=== PATIENT | female | born 1950 | race Caucasian/White ===

== ENCOUNTER 2017-03-02 13:06 | Emergency (ER) | payer MEDICARE, OTHER ==
[2017-03-02 15:41] VITALS: BP 158/95
== END 2017-03-02 16:40 | disposition left against medical advice (07) ==
LOC: JP.ED 13:06
DX: Z53.21 Procedure and treatment not carried out due to patient leaving prior to being seen by health care provider (principal)

== ENCOUNTER 2017-04-05 07:16 | Day surgery (SDC) | payer MEDICARE, OTHER ==
[~2017-04-05 07:16] MED LIST: Lidocaine 1% with EPINEPHrine 1:100,000 50 ML MDV ONE; Sodium Chloride 0.9% 10 ML ONE; Sodium Tetradecyl Sulfate 1% 20 MG/2 ML SDV ONE
[2017-04-05] MEDS ORDERED: Sodium Chloride 0.9% 1,000 ML IV SCH (08:00)
[2017-04-05] MEDS ORDERED: Lidocaine 1% w/EPINEPHrine 50 ML, Sodium Bicarbonate 5 MEQ in Sodium Chloride 0.9% 950 ML INJECT ONE (08:45)
[2017-04-05] MEDS ORDERED: Propofol 200 MG/20 ML SDV ONE ×2 (09:07→09:17)
[2017-04-05] MEDS ORDERED: fentaNYL 100 MCG/2 ML SDV ONE (09:07)
[2017-04-05] MEDS ORDERED: Midazolam 1 MG/ML 2 ML SDV ONE (09:07)
[2017-04-05] MEDS ORDERED: fentaNYL 250 MCG/5 ML SDV ONE (09:14)
[2017-04-05] MEDS ORDERED: Acetaminophen/HYDROcodone 325-5 MG Tab PO PRN (10:17)
[2017-04-05 12:27] VITALS: BP 143/78
--- NOTE | 2017-04-06 07:32 | OR ---
DATE OF PROCEDURE: 04/05/2017 PREOPERATIVE DIAGNOSES: 1. Radiofrequency ablation of right greater saphenous vein. 2. Sclerotherapy, right leg, multiple. 3. CoFlex wrapping, right leg. COMPLICATIONS: None. ABRASIVE GRINDER: None. ANESTHESIA: MAC. POSTOPERATIVE DIAGNOSIS: Venous/varicose vein insufficiency with inflammation and pain. Risks: Risks benefits, alternatives, and limitations were including, but not limited to infection, bleeding, and DVT formation were explained and the patient wished to proceed. PROCEDURE IN DETAIL: The patient was placed in supine position. The GSV was identified on the right leg. This was followed down to the level of the ankle, but then extreme tortuosity was noted in the lower calf. Therefore, access point would be around the knee. This was accessed using a 31,000 or a 21-gauge needle that was exchanged for a 35,000 wire then exchanged for a 7-Polish sheath. The RFA probe was advanced 3 cm to the saphenofemoral junction. Tumescent fluid was injected 1 cm jacket around this would be verified at the second time. The RFA probe was then deployed x2 proximally and distally and x1 in all other segments. Direct even pressure was held. The sheath and device were then removed. Dermabond was applied. Sclerotherapy was then performed on the right leg. There were 3 on the right. This was performed using 0.33% sodium tetradactyl, was drawn back to ensure intravascular injection only. No more than 2 mL was injected in one location. CoFlex wrapping was then applied to the right leg. The patient tolerated the procedure well. Tigre Oneal MD /[id number]
== END 2017-04-05 11:30 | disposition home or self-care (01) ==
LOC: JP.SDS 07:16
PROVIDERS: ATTEND Surgery
DX: I87.2 Venous insufficiency (chronic) (peripheral) (principal); I83.11 Varicose veins of right lower extremity with inflammation; I83.811 Varicose veins of right lower extremity with pain; I25.2 Old myocardial infarction; G47.33 Obstructive sleep apnea (adult) (pediatric); I10 Essential (primary) hypertension; E78.5 Hyperlipidemia, unspecified; E11.9 Type 2 diabetes mellitus without complications; K21.9 Gastro-esophageal reflux disease without esophagitis; Z88.0 Allergy status to penicillin; Z88.8 Allergy status to other drugs, medicaments and biological substances; Z91.040 Latex allergy status
CPT/HCPCS: 36471; 36475; A9270; J1642; J2250; J2704; J3010; J7040; J7050; J3490

== ENCOUNTER 2018-02-19 12:25 | Observation (INO) | payer MEDICARE, OTHER ==
[2018-02-19] MEDS ORDERED: Sodium Chloride 0.9% 10 ML Syringe FLUSH PRN (13:13)
[2018-02-19] MEDS ORDERED: Ondansetron 4 MG/2 ML SDV IV PRN (13:13)
[2018-02-19] MEDS ORDERED: Polyethylene Glycol 3350 Powder 17 GM Packet PO PRN (13:13)
[2018-02-19] MEDS ORDERED: Magnesium Hydroxide 400 MG/5 ML Susp 30 ML Cup PO PRN (13:13)
[2018-02-19] MEDS ORDERED: 50% Dextrose in Water 50 ML Syringe IV PRN (13:13)
[2018-02-19] MEDS ORDERED: Glucose Gel 15 GM in 37.5 GM Tube PO PRN (13:13)
[2018-02-19] MEDS ORDERED: Aztreonam 1 GM in Sodium Chloride 0.9% 100 ML IV SCH (14:00)
--- NOTE | 2018-02-19 14:08 | PCM.HP ---
H&P History of Present Illness - General Date of Service: 02/19/18 Admit Problem/Dx: Admission Diagnosis/Problem Admission Diagnosis/Problem Urinary tract infection Source of Information: Patient, Provider History Limitations: Reports: No Limitations - History of Present Illness Initial Comments - Free Text/Narative: Ms. Man is a 67-year-old woman who is admitted as a direct admission from the clinic with urinary tract infection and severe yeast dermatitis. She's had ongoing inflammation and erythema with pain in her groin over the past 2 weeks, it's been significantly worse over the past week. She was seen and evaluated in the clinic about a week and a half ago and felt to have a bladder infection, she just completed a course of antibiotic therapy with levofloxacin. She presented to the clinic today because of increased pain and inflammation in the groin and was noted to have significant erythema in the leg creases and perineal region. Urinalysis obtained at the clinic today shows evidence of ongoing urinary tract infection. Groin Pain Score (Numeric/FACES): 2 - Related Data Allergies/Adverse Reactions: Allergies Allergy/AdvReac Type Severity Reaction Status Date / Time atenolol Allergy Abdominal Verified 04/05/17 07:44 Pain cephalexin Allergy Cannot Verified 04/05/17 07:44 Remember duloxetine HCl Allergy Cannot Verified 04/05/17 07:44 [From Cymbalta] Remember latex Allergy Cannot Verified 04/05/17 07:44 Remember lisinopril Allergy Cannot Verified 04/05/17 07:44 Remember Penicillins Allergy Cannot Verified 04/05/17 07:44 Remember silicone [Silicone] Allergy Cannot Verified 04/05/17 07:44 Remember pregabalin [From Lyrica] AdvReac Stomach Verified 04/05/17 07:44 Upset Home Medications: Home Meds Aspirin [Adult Low Dose Aspirin EC] 81 mg PO DAILY 03/20/14 [History] Budesonide/Formoterol [Symbicort 80-4.5 MCG] 2 puff INH BID PRN 03/20/14 [ History] Furosemide [Lasix] 40 mg PO DAILY 03/20/14 [History] Insulin Aspart [Novolog Flexpen] 12 units SUBCUT TIDMEALS 03/20/14 [History] Omeprazole 40 mg PO DAILY 03/20/14 [History] Oxybutynin Chloride [Ditropan Xl] 10 mg PO DAILY 03/20/14 [History] Simvastatin [Zocor] 20 mg PO BEDTIME 03/20/14 [History] hydrOXYzine Pamoate [Vistaril] 25 mg PO TID PRN 03/20/14 [History] traZODone 200 mg PO BEDTIME 03/20/14 [History] Albuterol/Ipratropium [Combivent] 1 puff INH Q4HR PRN 08/27/14 [History] azaTHIOprine [Azathioprine] 50 mg PO TID 08/27/14 [History] buPROPion [Wellbutrin XL] 300 mg PO DAILY 08/27/14 [History] Insulin Degludec [Tresiba Flextouch U-200] 100 units SQ DAILY 08/28/16 [History] Prasugrel HCl [Effient] 10 mg PO DAILY 11/16/16 [History] Acetaminophen [Tylenol] 650 mg PO Q4H PRN 04/03/17 [History] Acetaminophen/Diphenhydramine [Tylenol Pm Ex-Strength Caplet] 2 tab PO BEDTIME PRN 04/03/17 [History] Albuterol [Proventil Neb Soln] 3 ml NEB Q4H PRN 04/03/17 [History] Carvedilol [Coreg] 6.25 mg PO BID 04/03/17 [History] Diclofenac Sodium [Voltaren 1% Gel] 4 gm TOP QID 04/03/17 [History] Latanoprost [Xalatan 0.005% Ophth Soln] 1 drop EYEBOTH BEDTIME 04/03/17 [History ] Methyl Salicylate/Menthol [Icy Hot Stick] 1 applic TOP QID PRN 04/03/17 [History ] Mupirocin Oint [Bactroban Oint] 1 applic TOP TID 04/03/17 [History] Polyethylene Glycol 3350 [MiraLAX] 17 gm PO DAILY 04/03/17 [History] Potassium Chloride 20 meq PO DAILY 04/03/17 [History] SUMAtriptan [Imitrex] 50 mg PO ASDIRECTED PRN 04/03/17 [History] Salsalate 500 mg PO BID PRN 04/03/17 [History] metroNIDAZOLE [Metrogel] 1 applic TOP DAILY 04/03/17 [History] Past Medical History HEENT History: Reports: Cataract, Hard of Hearing, Impaired Vision Cardiovascular History: Reports: CAD, High Cholesterol, Hypertension, [place], Stents Respiratory History: Reports: Asthma, COPD, Sleep Apnea Gastrointestinal History: Reports: Cholelithiasis, GERD Genitourinary History: Reports: Urinary Incontinence [employer] History: Reports: , Spontaneous Musculoskeletal History: Reports: Back Pain, Chronic, Fracture, Osteoarthritis Neurological History: Reports: Migraines Psychiatric History: Reports: Depression Endocrine/Metabolic History: Reports: Diabetes, Type II, Obesity/BMI 30+ Dermatologic History: Reports: Other (See Below) Other Dermatologic History: blisters - Infectious Disease History Infectious Disease History: Reports: Chicken Pox, Hepatitis A, Mumps - Past Surgical History HEENT Surgical History: Reports: Cataract Surgery Cardiovascular Surgical History: Reports: Coronary Artery Stent Respiratory Surgical History: Reports: None GI Surgical History: Reports: Appendectomy, Cholecystectomy Female Surgical History: Reports: Section, D&C, Hysterectomy, Salpingo-Oophorectomy Endocrine Surgical History: Reports: None Neurological Surgical History: Reports: None Musculoskeletal Surgical History: Reports: Arthroscopic Procedure, Carpal Tunnel , Other (See Below) Other Musculoskeletal Surgeries/Procedures:: ankle surgery on fx Dermatological Surgical History: Reports: None Social & Family History - Tobacco Use Smoking Status *Q: Current Every Day Smoker Years of Tobacco use: 47 Packs/Tins Daily: 1 Used Tobacco, but Quit: No Month/Year Tobacco Last Used: August, Second Hand Smoke Exposure: No - Caffeine Use Caffeine Use: Reports: Coffee - Alcohol Use Days Per Week of Alcohol Use: 0 - Recreational Drug Use Recreational Drug Use: No - Living Situation & Occupation Living situation: Reports: Single Occupation: Disabled H&P Review of Systems - Review of Systems: Review Of Systems: See Below General: Reports: Weakness. Denies: Fever, Chills, Diaphoresis HEENT: Reports: No Symptoms Pulmonary: Reports: No Symptoms Cardiovascular: Reports: No Symptoms Gastrointestinal: Reports: No Symptoms Genitourinary: Reports: Incontinence. Denies: Dysuria, Frequency, Urgency, Hematuria, Retention Musculoskeletal: Reports: No Symptoms Skin: Reports: Erythema (Groin) Psychiatric: Reports: No Symptoms Neurological: Reports: No Symptoms Hematologic/Lymphatic: Reports: No Symptoms Immunologic: Reports: No Symptoms Exam - Exam Exam: See Below - Vital Signs Vital Signs: Last Vital Signs Temp 97.8 F 02/19/18 12:49 Pulse 71 02/19/18 12:49 Resp 18 02/19/18 12:49 BP 130/63 02/19/18 12:49 Pulse Ox 91 L 02/19/18 12:49 - Exam Quality Assessment: DVT Prophylaxis General: Alert, Oriented, Cooperative, Mild Distress HEENT: Conjunctiva Clear, Hearing Intact, Mucosa Moist & [place], Normal Nasal Septum, Posterior Pharynx Clear, Pupils Equal Neck: Supple, Trachea Midline, +2 Carotid Pulse wo Bruit Lungs: Clear to Auscultation, Normal Respiratory Effort Cardiovascular: Regular Rate, Regular Rhythm, Normal S1, Normal S2. No: Systolic Murmur, Diastolic Murmur GI/Abdominal Exam: Soft, Non-Tender, No Organomegaly, No Distention Back Exam: Normal Inspection, Full Range of Motion Extremities: Non-Tender, No Pedal Edema Skin: Other (Erythema and inflammation in the leg folds and perineal area, no evidence of obvious cellulitis) Neurological: Cranial Nerves Intact, Strength Equal Bilateral, Normal Speech, Normal Tone, Sensation Intact. No: Focal Deficit Neuro Extensive - Mental Status: Alert, Oriented x3, Normal Mood/Affect, Normal Cognition, Memory Intact - Patient Data Lab Results Last 24 hrs: Laboratory Results - last 24 hr 02/19/18 Range/Units 13:32 WBC 12.3 H (4.5-11.0) K/uL RBC 4.69 (3.30-5.50) M/uL Hgb 14.6 (12.0-15.0) g/dL Hct 43.5 (36.0-48.0) % MCV 93 (80-98) fL MCH 31 (27-31) pg MCHC 34 (32-36) % Plt Count 293 (150-400) K/uL Neut % (Auto) 73 H (36-66) % Lymph % (Auto) 17 L (24-44) % [place] % (Auto) 6 (2-6) % Eos % (Auto) 3 (2-4) % Baso % (Auto) 1 (0-1) % Result Diagrams: 02/19/18 13:32 02/19/18 13:32 *Q Meaningful Use (ADM) - VTE Risk Assess *Q Each Risk Factor Represents 1 Point: Obesity ( BMI > 25 kg/m2) Total Score 1 Point Risk Factors: 1 Each Risk Factor Represents 2 Points: Age 60 - 74 Years Total Score 2 Point Risk Factors: 2 Each Risk Factor Represents 3 Points: None Total Score 3 Point Risk Factors: 0 Each Risk Factor Represents 5 Points: None Total Score 5 Point Risk Factors: 0 Venous Thromboembolism Risk Factor Score *Q: 3 Problem List Initiated/Reviewed/Updated: Yes Orders Last 24hrs: Active Orders 24 hr Category Date Time Status Patient Status [ADT] Routine ADT 02/19/18 13:13 Active Ambulate [RC] QID Care 02/19/18 13:13 Active Blood Glucose Check, Bedside [RC] QIDACANDBED Care 02/19/18 13:13 Active Communication Order [RC] STAT Care 02/19/18 13:13 Active Diabetes Education [RC] Click to Edit Care 02/19/18 13:13 Active Height and Weight [RC] DAILY Care 02/19/18 13:13 Active Intake and Output [RC] QSHIFT Care 02/19/18 13:13 Active Notify Provider Vital Signs [RC] ASDIRECTED Care 02/19/18 13:13 Active Notify Provider [RC] PRN Care 02/19/18 13:13 Active Oxygen Therapy [RC] PRN Care 02/19/18 13:13 Active Peripheral IV Care [RC] . DIRECTED Care 02/19/18 13:13 Active Up to Chair [RC] QID Care 02/19/18 13:13 Active VTE/DVT Education [RC] Per Unit Routine Care 02/19/18 13:13 Active Vital Signs [RC] Q4H Care 02/19/18 13:13 Active Consistent Carbohydrate Diet [DIET] Diet 02/19/18 Lunch Active C-REACTIVE PROTEIN [CHEM] Stat Lab 02/19/18 13:32 Received CBC WITH AUTO DIFF [HEME] Stat Lab 02/19/18 13:32 Results COMPREHENSIVE METABOLIC PN,CMP [CHEM] Stat Lab 02/19/18 13:32 Received CULTURE URINE [RM] Stat Lab 02/19/18 13:13 Ordered GLUCOSE POC LAB TO COLLECT [POC] QIDACANDBED Lab 02/19/18 16:30 Ordered GLUCOSE POC LAB TO COLLECT [POC] QIDACANDBED Lab 02/19/18 21:00 Ordered GLUCOSE POC LAB TO COLLECT [POC] QIDACANDBED Lab 02/20/18 07:30 Ordered GLUCOSE POC LAB TO COLLECT [POC] QIDACANDBED Lab 02/20/18 11:30 Ordered GLUCOSE POC LAB TO COLLECT [POC] QIDACANDBED Lab 02/20/18 16:30 Ordered GLUCOSE POC LAB TO COLLECT [POC] QIDACANDBED Lab 02/20/18 21:00 Ordered GLUCOSE POC LAB TO COLLECT [POC] QIDACANDBED Lab 02/21/18 07:30 Ordered GLUCOSE POC LAB TO COLLECT [POC] QIDACANDBED Lab 02/21/18 11:30 Ordered GLUCOSE POC LAB TO COLLECT [POC] QIDACANDBED Lab 02/21/18 16:30 Ordered GLUCOSE POC LAB TO COLLECT [POC] QIDACANDBED Lab 02/21/18 21:00 Ordered GLUCOSE POC LAB TO COLLECT [POC] QIDACANDBED Lab 02/22/18 07:30 Ordered GLUCOSE POC LAB TO COLLECT [POC] QIDACANDBED Lab 02/22/18 11:30 Ordered MAGNESIUM [CHEM] Stat Lab 02/19/18 13:32 Received SEDIMENTATION RATE MANUAL [HEME] Stat Lab 02/19/18 13:32 Results Acetaminophen [Tylenol] Med 02/19/18 13:13 Active 650 mg PO Q4H PRN Aztreonam/Dextrose-Water [Azactam in Dextrose,Iso- Med 02/19/18 14:00 Active Osmotic 1 GM/50 ML] 1 gm Premix Bag 1 bag IV Q8HR Clindamycin Phosphate [Cleocin] 300 mg Med 02/19/18 14:30 Active Sodium Chloride 0.9% [Normal Saline] 50 ml IV Q6H Dextrose 50% in Water Med 02/19/18 13:13 Active 50 ml IV ASDIRECTED PRN Dextrose [Glutose 15] Med 02/19/18 13:13 Active 15 gm PO ASDIRECTED PRN Docusate Sodium/Sennosides [Senna Plus] Med 02/19/18 13:13 Active 1 tab PO BID PRN Enoxaparin [Lovenox] Med 02/19/18 16:00 Active 40 mg SUBCUT Q24H Insulin Aspart [NovoLOG] Med 02/19/18 17:00 Active See Protocol SUBCUT QIDACANDBED Lactobacillus Rhamnosus GG [Culturelle] Med 02/19/18 14:00 Active 2 cap PO BID Magnesium Hydroxide [Milk of Magnesia] Med 02/19/18 13:13 Active 30 ml PO Q12H PRN Nystatin [Nystop] Med 02/19/18 16:00 Active See Dose Instructions TOP QID Ondansetron [Zofran] Med 02/19/18 13:13 Active 4 mg IV Q4H PRN Polyethylene Glycol 3350 [MiraLAX] Med 02/19/18 13:13 Active 17 gm PO DAILY PRN Sodium Chloride 0.9% [Saline Flush] Med 02/19/18 13:13 Active 10 ml FLUSH ASDIRECTED PRN oxyCODONE Med 02/19/18 13:13 Active 5 mg PO Q4H PRN Peripheral IV Insertion Adult [OM.PC] Routine Oth 02/19/18 13:13 Ordered Saline Lock Insert [OM.PC] Routine Oth 02/19/18 13:13 Ordered Resuscitation Status Routine Resus Stat 02/19/18 12:42 Ordered Medication Orders Acetaminophen (Tylenol) 650 mg PO Q4H PRN PRN Reason: Pain (Mild 1-3)/fever Dextrose (Glutose 15) 15 gm PO ASDIRECTED PRN PRN Reason: Hypoglycemia Dextrose/Water (Dextrose 50% In Water) 50 ml IV ASDIRECTED PRN PRN Reason: Hypoglycemia Enoxaparin Sodium (Lovenox) 40 mg SUBCUT Q24H [facility] Clindamycin Phosphate 300 mg/ (Sodium Chloride) 52 mls @ 150 mls/hr IV Q6H [facility] Aztreonam/Dextrose 1 gm/ (Premix) 50 mls @ 100 mls/hr IV Q8HR [facility] Insulin Aspart (Novolog) 0 unit SUBCUT QIDACANDBED [facility]; Protocol Lactobacillus Rhamnosus (Culturelle) 2 cap PO BID [facility] Magnesium Hydroxide (Milk Of Magnesia) 30 ml PO Q12H PRN PRN Reason: Constipation Nystatin (Nystop) 0 gm TOP QID [facility] Ondansetron HCl (Zofran) 4 mg IV Q4H PRN PRN Reason: Nausea/Vomiting Oxycodone HCl (Oxycodone) 5 mg PO Q4H PRN PRN Reason: Pain (moderate 4-6) Polyethylene Glycol (Miralax) 17 gm PO DAILY PRN PRN Reason: Constipation Senna/Docusate Sodium (Senna Plus) 1 tab PO BID PRN PRN Reason: Constipation Sodium Chloride (Saline Flush) 10 ml FLUSH ASDIRECTED PRN PRN Reason: Keep Vein Open Assessment/Plan Comment:: ASSESSMENT AND PLAN URINARY TRACT INFECTION-associated with recent symptoms of incontinence, having failed a recent course of outpatient antibiotic therapy. Urinalysis obtained today at the clinic shows evidence of ongoing infection. -Urine culture pending - IV aztreonam and clindamycin, pending culture results YEAST DERMATITIS -associated with significant erythema and inflammation with associated pain in the leg folds and perineal region. No evidence of active cellulitis at the present time - keep areas dry as possible - nystatin powder to the area 4 times daily TYPE 2 DIABETES MELLITUS -history of recent and long-term poor control, most recent hemoglobin A1c obtained at the clinic was elevated at greater than 10 - continue usual dose of short and long acting insulin -moderate dose sliding scale NovoLog -4 times a day glucometers MAINTENANCE ISSUES -DVT prophylaxis; Lovenox 40 mg subcutaneous daily -GI prophylaxis; not indicated -Watts catheter; not indicated -Nutrition;Consistent carb diet -Nicotine dependence; not required CODE STATUS- FULL CODE ADMISSION STATUS-this patient will be admitted to observation status, expect no more than a one night hospital stay for evaluation and management of problems as outlined above. DISPOSITION-anticipate discharge to home after the hospital stay. PRIMARY CARE PROVIDER-Dr. Alexander
[2018-02-19] MEDS: Lactobacillus Rhamnosus GG (Probiotic) Cap PO SCH ×2 (15:09→22:03)
[2018-02-19] MEDS: Aztreonam/Dextrose-Water 1 GM in Premix Bag 1 BAG IV SCH ×2 (15:10→22:52)
[2018-02-19] MEDS: Nystatin Topical Powder 15 GM Bottle TOP SCH ×2 (15:41→22:01)
[2018-02-19] MEDS ORDERED: Non-Formulary Medication 1 Each (Budesonide/Formoterol [Symbicort 80-4.5 Mcg] 2 PUFF) INH PRN (15:52)
[2018-02-19] MEDS ORDERED: IPRATROPIUM INH PRN (15:52)
[2018-02-19] MEDS ORDERED: Albuterol 0.083% 2.5 MG/3 ML Neb Soln NEB PRN (15:52)
[2018-02-19] MEDS ORDERED: ALBUTEROL INH PRN (15:52)
[2018-02-19] MEDS ORDERED: Enoxaparin 40 MG/0.4 ML Syringe SUBCUT SCH (16:00)
[2018-02-19] MEDS: oxyCODONE 5 MG Tab PO PRN ×2 (18:03→22:01)
[2018-02-19] MEDS: Insulin Aspart 100 Units/ML 3 ML Pen SUBCUT SCH ×3 (18:04→22:10)
[2018-02-19] MEDS ORDERED: TRAZODONE 100 MG PO SCH (21:00)
[2018-02-19] MEDS ORDERED: Simvastatin 20 MG Tab PO SCH (21:00)
[2018-02-19] MEDS ORDERED: Latanoprost 0.005% Ophth Soln 2.5 ML Bottle EYEBOTH SCH (21:00)
[2018-02-19] MEDS: Acetaminophen 325 MG Tab PO PRN (22:00)
[2018-02-19] MEDS: Carvedilol 6.25 MG Tab**POM PO SCH (22:01)
[2018-02-20] MEDS: Aztreonam/Dextrose-Water 1 GM in Premix Bag 1 BAG IV SCH (05:26)
[2018-02-20] MEDS: Nystatin Topical Powder 15 GM Bottle TOP SCH ×2 (05:34→12:04)
[2018-02-20] MEDS: Insulin Aspart 100 Units/ML 3 ML Pen SUBCUT SCH ×4 (07:58→12:09)
[2018-02-20] MEDS: Lactobacillus Rhamnosus GG (Probiotic) Cap PO SCH (08:06)
[2018-02-20] MEDS: Carvedilol 6.25 MG Tab**POM PO SCH (08:06)
[2018-02-20] MEDS ORDERED: INSULIN DEGLUDEC 100 UNIT SQ SCH (09:00)
[2018-02-20] MEDS ORDERED: PRASUGREL 10 MG PO SCH (09:00)
[2018-02-20] MEDS ORDERED: POTASSIUM CHLORIDE 20 MEQ PO SCH (09:00)
[2018-02-20] MEDS ORDERED: OMEPRAZOLE 40 MG PO SCH (09:00)
[2018-02-20] MEDS ORDERED: OXYBUTYNIN 10 MG PO SCH (09:00)
[2018-02-20] MEDS ORDERED: Non-Formulary Medication 1 Each (Potassium Chloride [Potassium Chloride] 20 MEQ) PO SCH (09:00)
[2018-02-20] MEDS ORDERED: Furosemide 40 MG Tab**POM PO SCH (09:00)
[2018-02-20] MEDS ORDERED: Aspirin 81 MG Tab.EC**POM PO SCH (09:00)
[2018-02-20] MEDS ORDERED: BUPROPION 300 MG PO SCH ×2 (09:00)
[2018-02-20] MEDS ORDERED: Pneumococcal Polyvalent-23 Vaccine 0.5 ML SDV SUBCUT ONE (10:00)
[2018-02-20 10:49] VITALS: BP 113/38
[2018-02-20] MEDS: oxyCODONE 5 MG Tab PO PRN (12:03)
[2018-02-20] MEDS: Acetaminophen 325 MG Tab PO PRN (12:04)
--- NOTE | 2018-02-20 12:19 | PCM.DCSUM1 ---
Discharge Summary - Hospital Course Brief History: This patient is a 67-year-old woman who was admitted as a direct admission from the clinic to observation status for management of yeast dermatitis in the groin as well as a urinary tract infection. - Discharge Data Discharge Date: 02/20/18 Discharge Disposition: Home, Self-Care 01 Condition: Fair - Discharge Diagnosis/Problem(s) (1) Yeast dermatitis SNOMED Code(s): 78289668 ICD Code: B37.2 - CANDIDIASIS OF SKIN AND NAIL Status: Acute Current Visit: Yes (2) UTI (urinary tract infection) SNOMED Code(s): 04741082 ICD Code: N39.0 - URINARY TRACT INFECTION, SITE NOT SPECIFIED Status: Acute Current Visit: Yes (3) Diabetes mellitus SNOMED Code(s): 11841704 ICD Code: E11.9 - TYPE 2 DIABETES MELLITUS WITHOUT COMPLICATIONS Status: Chronic Priority: Medium Current Visit: No Qualifiers: Diabetes mellitus type: type 2 Diabetes mellitus complication status: without complication - Patient Summary/Data Consults: Consultations 02/19/18 14:46 Consult to Physical Therapy [PT Evaluation and Treatment] [CONS] Routine Please Evaluate and Treat. PT Reason for Consult: weakness This query below is only for informational purposes and is not editable. Admission Diagnosis/Problem: Urinary tract infection Hospital Course: Ms. Man is a 67-year-old woman who was admitted as a direct admission from the clinic with urinary tract infection and severe yeast dermatitis. She's had ongoing inflammation and erythema with pain in her groin over the past 2 weeks, it's been significantly worse over the past week. She was seen and evaluated in the clinic about a week and a half ago and felt to have a bladder infection, she just completed a course of antibiotic therapy with levofloxacin. She presented to the clinic today because of increased pain and inflammation in the groin and was noted to have significant erythema in the leg creases and perineal region. Urinalysis obtained at the clinic showed evidence of ongoing urinary tract infection. On admission physical the area of erythema in the skin folds and perineum was felt to be secondary to yeast dermatitis. She was started on nystatin powder and by the time of discharge and noted moderate improvement in the inflammation and pain. She initially was started on IV antibiotic therapy for urinary tract infection with clindamycin and Azactam. Options for management of infection are limited because of her history of allergic reaction to penicillins and cephalosporins. She had recently completed a course of antibiotic therapy with levofloxacin. White blood cell count on admission was modestly elevated, but she was noted to have no significant temperature elevation. By the time of discharge white blood cell count had normalized and she had remained hemodynamically stable and afebrile throughout her hospital course. Urine culture had been ordered on admission but unfortunately this was not collected so we did have no further information as far as management of specific bacteria. She will be discharged home with a nystatin powder to be applied 4 times daily as well as trimethoprim/sulfamethoxazole double strength 1 by mouth twice a day for 7 days. Activity will be as tolerated and she will resume her usual consistent carb diet. Follow-up appointment will be scheduled with Dr. Alexander within one week. Home care will be arranged for follow-up at home after discharge. - Patient Instructions Diet: Diabetic Diet Activity: As Tolerated Other/Special Instructions: Keep area of dermatitis in the groin clean and dry. Please schedule follow-up appointment with Dr. Alexander within one week. - Discharge Plan Prescriptions/Med Rec: Nystatin 60 gm TP QID #60 gm Sulfamethoxazole/Trimethoprim [Sulfamethoxazole-Tmp Ds Tablet] 1 each PO BID # 14 tablet Home Medications: Home Meds Aspirin [Adult Low Dose Aspirin EC] 81 mg PO DAILY 03/20/14 [History] Budesonide/Formoterol [Symbicort 80-4.5 MCG] 2 puff INH BID PRN 03/20/14 [ History] Furosemide [Lasix] 40 mg PO DAILY 03/20/14 [History] Insulin Aspart [Novolog Flexpen] 12 units SUBCUT TIDMEALS 03/20/14 [History] Omeprazole 40 mg PO DAILY 03/20/14 [History] Oxybutynin Chloride [Ditropan Xl] 10 mg PO DAILY 03/20/14 [History] Simvastatin [Zocor] 20 mg PO BEDTIME 03/20/14 [History] hydrOXYzine Pamoate [Vistaril] 25 mg PO TID PRN 03/20/14 [History] traZODone 200 mg PO BEDTIME 03/20/14 [History] Albuterol/Ipratropium [Combivent] 1 puff INH Q4HR PRN 08/27/14 [History] azaTHIOprine [Azathioprine] 50 mg PO TID 08/27/14 [History] buPROPion [Wellbutrin XL] 300 mg PO DAILY 08/27/14 [History] Insulin Degludec [Tresiba Flextouch U-200] 100 units SQ DAILY 08/28/16 [History] Prasugrel HCl [Effient] 10 mg PO DAILY 11/16/16 [History] Acetaminophen [Tylenol] 650 mg PO Q4H PRN 04/03/17 [History] Acetaminophen/Diphenhydramine [Tylenol Pm Ex-Strength Caplet] 2 tab PO BEDTIME PRN 04/03/17 [History] Albuterol [Proventil Neb Soln] 3 ml NEB Q4H PRN 04/03/17 [History] Carvedilol [Coreg] 6.25 mg PO BID 04/03/17 [History] Diclofenac Sodium [Voltaren 1% Gel] 4 gm TOP QID 04/03/17 [History] Latanoprost [Xalatan 0.005% Ophth Soln] 1 drop EYEBOTH BEDTIME 04/03/17 [History ] Methyl Salicylate/Menthol [Icy Hot Stick] 1 applic TOP QID PRN 04/03/17 [History ] Mupirocin Oint [Bactroban Oint] 1 applic TOP TID 04/03/17 [History] Polyethylene Glycol 3350 [MiraLAX] 17 gm PO DAILY 04/03/17 [History] Potassium Chloride 20 meq PO DAILY 04/03/17 [History] SUMAtriptan [Imitrex] 50 mg PO ASDIRECTED PRN 04/03/17 [History] Salsalate 500 mg PO BID PRN 04/03/17 [History] metroNIDAZOLE [Metrogel] 1 applic TOP DAILY 04/03/17 [History] Nystatin 60 gm TP QID #60 gm 02/20/18 [Rx] Sulfamethoxazole/Trimethoprim [Sulfamethoxazole-Tmp Ds Tablet] 1 each PO BID # 14 tablet 02/20/18 [Rx] - Patient Data Vitals - Most Recent: Last Vital Signs Temp 96.6 F 02/20/18 10:46 Pulse 70 02/20/18 10:46 Resp 16 02/20/18 10:46 BP 113/38 L 02/20/18 10:46 Pulse Ox 92 L 02/20/18 10:46 Weight - Most Recent: 282 lb I&O - Last 24 hours: Intake & Output 02/19/18 02/20/18 02/20/18 22:59 06:59 14:59 Intake Total 300 500 300 Output Total 450 600 900 Balance -150 -100 -600 Lab Results - Last 24 hrs: Laboratory Results - last 24 hr 02/19/18 02/19/18 02/20/18 Range/Units 13:32 13:32 05:55 WBC 12.3 H 11.0 (4.5-11.0) K/uL RBC 4.69 4.34 (3.30-5.50) M/uL Hgb 14.6 13.7 (12.0-15.0) g/dL Hct 43.5 40.9 (36.0-48.0) % MCV 93 94 (80-98) fL MCH 31 32 H (27-31) pg MCHC 34 34 (32-36) % Plt Count 293 253 (150-400) K/uL Neut % (Auto) 73 H 62 (36-66) % Lymph % (Auto) 17 L 25 (24-44) % [place] % (Auto) 6 8 H (2-6) % Eos % (Auto) 3 4 (2-4) % Baso % (Auto) 1 1 (0-1) % ESR 55 H (0-25) mm/hr Sodium 137 L (140-148) mmol/L Potassium 4.1 (3.6-5.2) mmol/L Chloride 99 L (100-108) mmol/L Carbon Dioxide 32 (21-32) mmol/L Anion Gap 10.1 (5.0-14.0) mmol/L BUN 12 (7-18) mg/dL Creatinine 0.8 (0.6-1.0) mg/dL Est Cr Clr Drug Dosing TNP Estimated GFR (MDRD) > 60 (>60) Glucose 187 H (74-106) mg/dL Calcium 8.9 (8.5-10.1) mg/dL Magnesium 1.8 D (1.8-2.4) mg/dL Total Bilirubin 0.3 (0.2-1.0) mg/dL AST 24 (15-37) U/L ALT 30 (12-78) U/L Alkaline Phosphatase 151 H (46-116) U/L C-Reactive Protein 3.59 H (0.0-0.3) mg/dL Total Protein 7.1 (6.4-8.2) g/dL Albumin 2.7 L (3.4-5.0) g/dL Globulin 4.4 H (2.3-3.5) g/dL Albumin/Globulin Ratio 0.6 L (1.2-2.2) 02/20/18 Range/Units 05:55 WBC (4.5-11.0) K/uL RBC (3.30-5.50) M/uL Hgb (12.0-15.0) g/dL Hct (36.0-48.0) % MCV (80-98) fL MCH (27-31) pg MCHC (32-36) % Plt Count (150-400) K/uL Neut % (Auto) (36-66) % Lymph % (Auto) (24-44) % [place] % (Auto) (2-6) % Eos % (Auto) (2-4) % Baso % (Auto) (0-1) % ESR (0-25) mm/hr Sodium 135 L (140-148) mmol/L Potassium 3.7 (3.6-5.2) mmol/L Chloride 101 (100-108) mmol/L Carbon Dioxide 31 (21-32) mmol/L Anion Gap 6.7 (5.0-14.0) mmol/L BUN 13 (7-18) mg/dL Creatinine 0.8 (0.6-1.0) mg/dL Est Cr Clr Drug Dosing 62.24 Estimated GFR (MDRD) > 60 (>60) Glucose 173 H (74-106) mg/dL Calcium 8.2 L (8.5-10.1) mg/dL Magnesium (1.8-2.4) mg/dL Total Bilirubin (0.2-1.0) mg/dL AST (15-37) U/L ALT (12-78) U/L Alkaline Phosphatase (46-116) U/L C-Reactive Protein (0.0-0.3) mg/dL Total Protein (6.4-8.2) g/dL Albumin (3.4-5.0) g/dL Globulin (2.3-3.5) g/dL Albumin/Globulin Ratio (1.2-2.2) Med Orders - Current: Current Medications Acetaminophen (Tylenol) 650 mg PO Q4H PRN PRN Reason: Pain (Mild 1-3)/fever Last Admin: 02/20/18 12:04 Dose: 650 mg Albuterol (Proventil Neb Soln) 2.5 mg NEB Q4H PRN PRN Reason: Dyspnea Aspirin (Halfprin) 81 mg PO DAILY [facility] Last Admin: 02/20/18 08:07 Dose: 81 mg Azathioprine (Imuran) 50 mg PO TID [facility] Last Admin: 02/20/18 12:05 Dose: 50 mg Carvedilol (Coreg) 6.25 mg PO BID [facility] Last Admin: 02/20/18 08:06 Dose: 6.25 mg Dextrose (Glutose 15) 15 gm PO ASDIRECTED PRN PRN Reason: Hypoglycemia Dextrose/Water (Dextrose 50% In Water) 50 ml IV ASDIRECTED PRN PRN Reason: Hypoglycemia Enoxaparin Sodium (Lovenox) 40 mg SUBCUT Q24H [facility] Last Admin: 02/19/18 15:42 Dose: 40 mg Furosemide (Lasix) 40 mg PO DAILY [facility] Last Admin: 02/20/18 10:34 Dose: 40 mg Clindamycin Phosphate 300 mg/ (Sodium Chloride) 52 mls @ 150 mls/hr IV Q6H [facility] Last Admin: 02/20/18 07:54 Dose: 150 mls/hr Aztreonam/Dextrose 1 gm/ (Premix) 50 mls @ 100 mls/hr IV Q8HR [facility] Last Admin: 02/20/18 05:26 Dose: 100 mls/hr Insulin Aspart (Novolog) 0 unit SUBCUT QIDACANDBED [facility]; Protocol Last Admin: 02/20/18 12:08 Dose: 6 units Insulin Aspart (Novolog) 12 unit SUBCUT TIDMEALS [facility] Last Admin: 02/20/18 12:09 Dose: 12 units Lactobacillus Rhamnosus (Culturelle) 2 cap PO BID [facility] Last Admin: 02/20/18 08:06 Dose: 2 cap Latanoprost (Xalatan 0.005% Ophth Soln) ml EYEBOTH BEDTIME [facility] Magnesium Hydroxide (Milk Of Magnesia) 30 ml PO Q12H PRN PRN Reason: Constipation Non-Formulary Medication (Albuterol/Ipratropium [Combivent]) 1 puff INH Q4HR PRN PRN Reason: Shortness of Breath Non-Formulary Medication (Budesonide/Formoterol [Symbicort 80-4.5 Mcg]) 2 puff INH BID PRN PRN Reason: Shortness of Breath Non-Formulary Medication (Insulin Degludec [Tresiba Flextouch U-200]) 100 units SQ DAILY [facility] Omeprazole (Prilosec () 40 MgPom) 40 mg PO DAILY [facility] Last Admin: 02/20/18 10:41 Dose: 40 mg Oxybutynin (Ditropan (Xl) 10 MgPom) 10 mg PO DAILY [facility] Last Admin: 02/20/18 10:41 Dose: 10 mg Nystatin (Nystop) 0 gm TOP QID [facility] Last Admin: 02/20/18 12:04 Dose: 1 applicful Ondansetron HCl (Zofran) 4 mg IV Q4H PRN PRN Reason: Nausea/Vomiting Oxycodone HCl (Oxycodone) 5 mg PO Q4H PRN PRN Reason: Pain (moderate 4-6) Last Admin: 02/20/18 12:03 Dose: 5 mg Trazodone 100 Mg Tab *Patient's Own Medication 1 Each* 0 each PO BEDTIME [facility] Last Admin: 02/19/18 22:02 Dose: 1 each Bupropion 300 Mg Tab (.ErPom) 0 each PO DAILY [facility] Last Admin: 02/20/18 10:41 Dose: 1 each Polyethylene Glycol (Miralax) 17 gm PO DAILY PRN PRN Reason: Constipation Potassium Chloride (Klor-Con M20) 20 meq PO DAILY [facility] Last Admin: 02/20/18 10:40 Dose: 20 meq Prasugrel (Effient) 10 mg PO DAILY [facility] Last Admin: 02/20/18 10:38 Dose: 10 mg Senna/Docusate Sodium (Senna Plus) 1 tab PO BID PRN PRN Reason: Constipation Simvastatin (Zocor) 20 mg PO BEDTIME [facility] Last Admin: 02/19/18 22:25 Dose: Not Given Sodium Chloride (Saline Flush) 10 ml FLUSH ASDIRECTED PRN PRN Reason: Keep Vein Open Discontinued Medications Pneumococcal Polyvalent Vaccine (Pneumovax 23) 0.5 ml SUBCUT .ONCE ONE Stop: 02/20/18 10:01 Last Admin: 02/20/18 12:02 Dose: 0.5 ml - Exam General: Reports: Alert, Oriented, Cooperative, No Acute Distress Lungs: Reports: Clear to Auscultation, Normal Respiratory Effort Cardiovascular: Reports: Regular Rate, Regular Rhythm, No Murmurs GI/Abdominal Exam: Soft, Non-Tender, No Organomegaly, No Distention Extremities: Non-Tender, No Pedal Edema Skin: Reports: Other (Erythema in the leg folds as well as perineal area had improved by the time of discharge but not totally resolved)
== END 2018-02-20 14:46 | disposition home or self-care (01) ==
LOC: JP.2SS 12:25
PROVIDERS: ADMIT Hospitalist; ATTEND Hospitalist
DX: N39.0 Urinary tract infection, site not specified (principal); L30.9 Dermatitis, unspecified; B37.2 Candidiasis of skin and nail; E11.9 Type 2 diabetes mellitus without complications; I25.10 Atherosclerotic heart disease of native coronary artery without angina pectoris; E78.00 Pure hypercholesterolemia, unspecified; I10 Essential (primary) hypertension; I25.2 Old myocardial infarction; J44.9 Chronic obstructive pulmonary disease, unspecified; G47.30 Sleep apnea, unspecified; K21.9 Gastro-esophageal reflux disease without esophagitis; M19.90 Unspecified osteoarthritis, unspecified site; G43.909 Migraine, unspecified, not intractable, without status migrainosus; F32.9 Major depressive disorder, single episode, unspecified; E66.9 Obesity, unspecified; F17.210 Nicotine dependence, cigarettes, uncomplicated; Z88.0 Allergy status to penicillin; Z88.1 Allergy status to other antibiotic agents; Z79.82 Long term (current) use of aspirin; Z79.4 Long term (current) use of insulin; Z79.899 Other long term (current) drug therapy; Z88.8 Allergy status to other drugs, medicaments and biological substances; Z91.040 Latex allergy status; Z95.5 Presence of coronary angioplasty implant and graft; Z68.30 Body mass index [BMI] 30.0-30.9, adult
CPT/HCPCS: 36415; 80048; 80053; 82962; 83735; 85025; 85651; 86140; 87086; 90732; 97162-GP; 97530-GP; A9270-GY; J1650; J3490; J7050; J7500; S0077

== ENCOUNTER 2018-02-25 23:07 | Inpatient (IN) | payer MEDICARE, OTHER ==
--- NOTE | 2018-02-25 23:58 | EDM.PDOC ---
ED HPI GENERAL MEDICAL PROBLEM - General Chief Complaint: General Stated Complaint: FALL VIA Time Seen by Provider: 02/26/18 00:36 Source of Information: Reports: Patient, EMS History Limitations: Reports: No Limitations - History of Present Illness INITIAL COMMENTS - FREE TEXT/NARRATIVE: Pt fell and landed on hr rt hip. She is not having alot of pain in the hip. She was so weak she was not able to get up . The ambulance was then called. She was just discharged from the hosp on the or . She had a UTI. She has not finished her course of bactrim. She has been quite weak all day. She did have a bad yeast infection when she was in the hosp the last time. Onset: Gradual, Other (Pt just did get gradually weaker through out the day, ) Duration: Other ( pt seemd to get worse today. ) Location: Reports: Other (pt has tenddrness in the rt hip. ) Associated Symptoms: Reports: Malaise, Weakness, Other ( Pt was not able to stand by herself. ) Right Hip Pain Score (Numeric/FACES): 5 - Related Data Allergies Allergy/AdvReac Type Severity Reaction Status Date / Time atenolol Allergy Abdominal Verified 04/05/17 07:44 Pain cephalexin Allergy Cannot Verified 04/05/17 07:44 Remember duloxetine HCl Allergy Cannot Verified 04/05/17 07:44 [From Cymbalta] Remember latex Allergy Cannot Verified 04/05/17 07:44 Remember lisinopril Allergy Cannot Verified 04/05/17 07:44 Remember Penicillins Allergy Cannot Verified 04/05/17 07:44 Remember silicone [Silicone] Allergy Cannot Verified 04/05/17 07:44 Remember pregabalin [From Lyrica] AdvReac Stomach Verified 04/05/17 07:44 Upset Home Meds: Home Meds Aspirin [Adult Low Dose Aspirin EC] 81 mg PO DAILY 03/20/14 [History] Budesonide/Formoterol [Symbicort 80-4.5 MCG] 2 puff INH BID PRN 03/20/14 [ History] Furosemide [Lasix] 40 mg PO DAILY 03/20/14 [History] Insulin Aspart [Novolog Flexpen] 12 units SUBCUT TIDMEALS 03/20/14 [History] Omeprazole 40 mg PO DAILY 03/20/14 [History] Oxybutynin Chloride [Ditropan Xl] 10 mg PO DAILY 03/20/14 [History] Simvastatin [Zocor] 20 mg PO BEDTIME 03/20/14 [History] hydrOXYzine Pamoate [Vistaril] 25 mg PO TID PRN 03/20/14 [History] traZODone 200 mg PO BEDTIME 03/20/14 [History] Albuterol/Ipratropium [Combivent] 1 puff INH Q4HR PRN 08/27/14 [History] azaTHIOprine [Azathioprine] 50 mg PO TID 08/27/14 [History] buPROPion [Wellbutrin XL] 300 mg PO DAILY 08/27/14 [History] Insulin Degludec [Tresiba Flextouch U-200] 100 units SQ DAILY 08/28/16 [History] Prasugrel HCl [Effient] 10 mg PO DAILY 11/16/16 [History] Albuterol [Proventil Neb Soln] 3 ml NEB Q4H PRN 04/03/17 [History] Carvedilol [Coreg] 6.25 mg PO BID 04/03/17 [History] Diclofenac Sodium [Voltaren 1% Gel] 4 gm TOP QID 04/03/17 [History] Latanoprost [Xalatan 0.005% Ophth Soln] 1 drop EYEBOTH BEDTIME 04/03/17 [History ] Methyl Salicylate/Menthol [Icy Hot Stick] 1 applic TOP QID PRN 04/03/17 [History ] Mupirocin Oint [Bactroban Oint] 1 applic TOP TID 04/03/17 [History] Potassium Chloride 20 meq PO DAILY 04/03/17 [History] SUMAtriptan [Imitrex] 50 mg PO ASDIRECTED PRN 04/03/17 [History] Salsalate 500 mg PO BID PRN 04/03/17 [History] metroNIDAZOLE [Metrogel] 1 applic TOP DAILY 04/03/17 [History] Nystatin 60 gm TP QID #60 gm 02/20/18 [Rx] Past Medical History HEENT History: Reports: Cataract, Hard of Hearing, Impaired Vision Cardiovascular History: Reports: CAD, High Cholesterol, Hypertension, RI, Stents Respiratory History: Reports: Asthma, COPD, Sleep Apnea Gastrointestinal History: Reports: Cholelithiasis, GERD Genitourinary History: Reports: Urinary Incontinence VULNERABILITY 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: Reports: , Spontaneous Musculoskeletal History: Reports: Back Pain, Chronic, Fracture, Osteoarthritis Neurological History: Reports: Migraines Psychiatric History: Reports: Depression Endocrine/Metabolic History: Reports: Diabetes, Type II, Obesity/BMI 30+ Dermatologic History: Reports: Other (See Below) Other Dermatologic History: blisters - Infectious Disease History Infectious Disease History: Reports: Chicken Pox, Hepatitis A, Mumps - Past Surgical History HEENT Surgical History: Reports: Cataract Surgery Cardiovascular Surgical History: Reports: Coronary Artery Stent Respiratory Surgical History: Reports: None GI Surgical History: Reports: Appendectomy, Cholecystectomy Female Surgical History: Reports: Section, D&C, Hysterectomy, Salpingo-Oophorectomy Endocrine Surgical History: Reports: None Neurological Surgical History: Reports: None Musculoskeletal Surgical History: Reports: Arthroscopic Procedure, Carpal Tunnel , Other (See Below) Other Musculoskeletal Surgeries/Procedures:: ankle surgery on fx Dermatological Surgical History: Reports: None Social & Family History - Family History Family Medical History: Noncontributory - Tobacco Use Smoking Status *Q: Current Every Day Smoker Years of Tobacco use: 47 Packs/Tins Daily: 1 Used Tobacco, but Quit: No Month/Year Tobacco Last Used: August, Second Hand Smoke Exposure: No - Caffeine Use Caffeine Use: Reports: Coffee Other Caffeine Use: 1 cup/day - Alcohol Use Days Per Week of Alcohol Use: 0 - Recreational Drug Use Recreational Drug Use: No - Living Situation & Occupation Living situation: Reports: Single Occupation: Disabled ED ROS GENERAL - Review of Systems Review Of Systems: See Below Constitutional: Reports: Malaise, Weakness HEENT: Reports: No Symptoms Respiratory: Reports: No Symptoms Cardiovascular: Reports: No Symptoms Endocrine: Reports: No Symptoms GI/Abdominal: Reports: No Symptoms : Reports: Dysuria Musculoskeletal: Reports: Other (pt fell and she was so weak she was not able to get up. ) Skin: Reports: No Symptoms Neurological: Reports: No Symptoms, Other (pt has generalized weakness. ) Psychiatric: Reports: No Symptoms, Anxiety ED EXAM, GENERAL - Physical Exam Exam: See Below Free Text/Narrative:: Pt arrived with marked weakness that started today. She had been doing well since discharge on the 4th until today when she fell ansd she was so weak she was not able to get up. She was hospitaluized recently for a yeast infection and a UTI. Exam Limited By: No Limitations General Appearance: Alert, Mild Distress, Other (pupils are equal and reactive. ) Ears: Normal TMs Nose: Normal Inspection Throat/Mouth: Normal Inspection Head: Atraumatic Neck: Normal Inspection Respiratory/Chest: No Respiratory Distress Cardiovascular: Regular Rate, Rhythm GI/Abdominal: Soft, Non-Tender (Female) Exam: Other (pt has a very red len area. ) Rectal (Female) Exam: Deferred Back Exam: Normal Inspection Extremities: Other ( Pt is tender over the rt hip capsule. ) Neurological: Alert, Oriented, Normal Cognition Psychiatric: Normal Mood Course - Vital Signs Last Recorded V/S: Last Vital Signs Temp 37.0 C 02/26/18 00:00 Pulse 98 02/26/18 00:00 Resp 20 02/26/18 00:00 BP 120/82 02/26/18 00:00 Pulse Ox 91 L 02/26/18 00:00 - Orders/Labs/Meds Orders: Active Orders 24 hr Category Date Time Status EKG Documentation Completion [RC] ASDIRECTED Care 02/25/18 23:16 Active Chest 1V Frontal [CR] Stat Exams 02/26/18 00:01 Taken Hip Min 2V or 3V w Pelvis Rt [CR] Stat Exams 02/26/18 00:48 Ordered CULTURE BLOOD [BC] Urgent Lab 02/26/18 00:32 Received CULTURE BLOOD [BC] Urgent Lab 02/26/18 00:44 Received CULTURE URINE [RM] Stat Lab 02/26/18 00:33 Received UA W/MICROSCOPIC [URIN] Urgent Lab 02/26/18 00:02 Ordered Sodium Chloride 0.9% [Normal Saline] 1,000 ml Med 02/26/18 00:45 Active IV ASDIRECTED Sodium Chloride 0.9% [Normal Saline] 1,000 ml Med 02/26/18 01:30 Ordered IV ASDIRECTED Blood Culture x2 Reflex Set [OM.PC] Urgent Oth 02/26/18 00:31 Ordered EKG 12 Lead [EK] Routine Ther 02/25/18 23:16 Ordered Medication Orders Sodium Chloride (Normal Saline) 1,000 mls @ 999 mls/hr IV ASDIRECTED KATELIN Last Admin: 02/26/18 00:36 Dose: 999 mls/hr Sodium Chloride (Normal Saline) 1,000 mls @ 999 mls/hr IV ASDIRECTED [facility] Labs: Laboratory Tests 02/25/18 02/25/18 02/26/18 Range/Units 23:27 23:27 00:02 WBC 13.1 H (4.5-11.0) K/uL RBC 4.85 (3.30-5.50) M/uL Hgb 15.3 H (12.0-15.0) g/dL Hct 44.6 (36.0-48.0) % MCV 92 (80-98) fL MCH 32 H (27-31) pg MCHC 34 (32-36) % Plt Count 311 (150-400) K/uL Neut % (Auto) 76 H (36-66) % Lymph % (Auto) 15 L (24-44) % [place] % (Auto) 7 H (2-6) % Eos % (Auto) 2 (2-4) % Baso % (Auto) 1 (0-1) % Sodium 134 L (140-148) mmol/L Potassium 4.2 (3.6-5.2) mmol/L Chloride 96 L (100-108) mmol/L Carbon Dioxide 29 (21-32) mmol/L Anion Gap 13.2 (5.0-14.0) mmol/L BUN 15 (7-18) mg/dL Creatinine 1.2 H (0.6-1.0) mg/dL Est Cr Clr Drug Dosing TNP Estimated GFR (MDRD) 45 L (>60) Glucose 432 H* (74-106) mg/dL Lactic Acid (0.4-2.0) mmol/L Calcium 9.0 (8.5-10.1) mg/dL Total Bilirubin 0.3 (0.2-1.0) mg/dL AST 24 (15-37) U/L ALT 41 (12-78) U/L Alkaline Phosphatase 168 H (46-116) U/L NT-Pro-B Natriuret Pep (5-125) pg/mL Total Protein 7.5 (6.4-8.2) g/dL Albumin 2.9 L (3.4-5.0) g/dL Globulin 4.6 H (2.3-3.5) g/dL Albumin/Globulin Ratio 0.6 L (1.2-2.2) Urine Color Yellow Urine Appearance Cloudy Urine pH 5.0 (4.5-8.0) Ur Specific [place] 1.015 (1.008-1.030) Urine Protein Negative (NEGATIVE) mg/dL Urine Glucose (UA) 1000 H (NEGATIVE) mg/dL Urine Ketones Negative (NEGATIVE) mg/dL Urine Occult Blood Moderate (NEGATIVE) Urine Nitrite Negative (NEGATIVE) Urine Bilirubin Negative (NEGATIVE) Urine Urobilinogen Normal (NORMAL) mg/dL Ur Leukocyte Esterase Large (NEGATIVE) Urine RBC 10-20 H (0-5) Urine WBC 20-30 H (0-5) Ur Epithelial Cells Many Amorphous Sediment Few Urine Bacteria Many Urine Mucus Not seen 02/26/18 02/26/18 Range/Units 00:30 00:34 WBC (4.5-11.0) K/uL RBC (3.30-5.50) M/uL Hgb (12.0-15.0) g/dL Hct (36.0-48.0) % MCV (80-98) fL MCH (27-31) pg MCHC (32-36) % Plt Count (150-400) K/uL Neut % (Auto) (36-66) % Lymph % (Auto) (24-44) % [place] % (Auto) (2-6) % Eos % (Auto) (2-4) % Baso % (Auto) (0-1) % Sodium (140-148) mmol/L Potassium (3.6-5.2) mmol/L Chloride (100-108) mmol/L Carbon Dioxide (21-32) mmol/L Anion Gap (5.0-14.0) mmol/L BUN (7-18) mg/dL Creatinine (0.6-1.0) mg/dL Est Cr Clr Drug Dosing Estimated GFR (MDRD) (>60) Glucose (74-106) mg/dL Lactic Acid 3.7 H (0.4-2.0) mmol/L Calcium (8.5-10.1) mg/dL Total Bilirubin (0.2-1.0) mg/dL AST (15-37) U/L ALT (12-78) U/L Alkaline Phosphatase (46-116) U/L NT-Pro-B Natriuret Pep 65 (5-125) pg/mL Total Protein (6.4-8.2) g/dL Albumin (3.4-5.0) g/dL Globulin (2.3-3.5) g/dL Albumin/Globulin Ratio (1.2-2.2) Urine Color Urine Appearance Urine pH (4.5-8.0) Ur Specific [place] (1.008-1.030) Urine Protein (NEGATIVE) mg/dL Urine Glucose (UA) (NEGATIVE) mg/dL Urine Ketones (NEGATIVE) mg/dL Urine Occult Blood (NEGATIVE) Urine Nitrite (NEGATIVE) Urine Bilirubin (NEGATIVE) Urine Urobilinogen (NORMAL) mg/dL Ur Leukocyte Esterase (NEGATIVE) Urine RBC (0-5) Urine WBC (0-5) Ur Epithelial Cells Amorphous Sediment Urine Bacteria Urine Mucus Meds: Medications Generic Name Dose Route Start Last Admin Trade Name Freq PRN Reason Stop Dose Admin Sodium Chloride 1,000 mls @ 999 mls/hr 02/26/18 00:45 02/26/18 00:36 Normal Saline IV 999 mls/hr ASDIRECTED KATELIN Administration Sodium Chloride 1,000 mls @ 999 mls/hr 02/26/18 01:30 Normal Saline IV ASDIRECTED KATELIN Discontinued Medications Generic Name Dose Route Start Last Admin Trade Name Freq PRN Reason Stop Dose Admin Insulin Human Regular 5 unit 02/26/18 00:33 02/26/18 00:40 Novolin R SUBCUT 02/26/18 00:34 5 unit ONETIME ONE Administration Protocol - Re-Assessments/Exams Free Text/Narrative Re-Assessment/Exam: 02/26/18 01:10 urins shows 20-30 wbcs, Her bs is greater than 400. She states this started to be out of control today. Her urine was cultured. 02/26/18 01:33 xrays of the rt hip and pelvis show no fractures. Departure - Departure Time of Disposition: 01:34 Disposition: Admitted As Inpatient 67 Condition: Fair Clinical Impression: UTI (urinary tract infection), Yeast infection, Sepsis, Contusion of right hip - Discharge Information Referrals: Danilo Alexander MD [Primary Care Provider] - Forms: ED Department Discharge Care Plan Goals: admit to [facility]. - My Orders Last 24 Hours: My Active Orders 02/25/18 23:16 EKG Documentation Completion [RC] ASDIRECTED EKG 12 Lead [EK] Routine 02/26/18 00:01 Chest 1V Frontal [CR] Stat 02/26/18 00:02 UA W/MICROSCOPIC [URIN] Urgent 02/26/18 00:31 Blood Culture x2 Reflex Set [OM.PC] Urgent 02/26/18 00:32 CULTURE BLOOD [BC] Urgent 02/26/18 00:33 CULTURE URINE [RM] Stat 02/26/18 00:44 CULTURE BLOOD [BC] Urgent 02/26/18 00:45 Sodium Chloride 0.9% [Normal Saline] 1,000 ml IV ASDIRECTED 02/26/18 00:48 Hip Min 2V or 3V w Pelvis Rt [CR] Stat 02/26/18 01:30 Sodium Chloride 0.9% [Normal Saline] 1,000 ml IV ASDIRECTED - Assessment/Plan Last 24 Hours: My Active Orders 02/25/18 23:16 EKG Documentation Completion [RC] ASDIRECTED EKG 12 Lead [EK] Routine 02/26/18 00:01 Chest 1V Frontal [CR] Stat 02/26/18 00:02 UA W/MICROSCOPIC [URIN] Urgent 02/26/18 00:31 Blood Culture x2 Reflex Set [OM.PC] Urgent 02/26/18 00:32 CULTURE BLOOD [BC] Urgent 02/26/18 00:33 CULTURE URINE [RM] Stat 02/26/18 00:44 CULTURE BLOOD [BC] Urgent 02/26/18 00:45 Sodium Chloride 0.9% [Normal Saline] 1,000 ml IV ASDIRECTED 02/26/18 00:48 Hip Min 2V or 3V w Pelvis Rt [CR] Stat 02/26/18 01:30 Sodium Chloride 0.9% [Normal Saline] 1,000 ml IV ASDIRECTED
[2018-02-26] MEDS ORDERED: Insulin Regular, Human 100 Units/ML 10 ML Vial SUBCUT ONE (00:33)
[2018-02-26] MEDS ORDERED: Sodium Chloride 0.9% 1,000 ML IV SCH ×4 (00:45→12:15)
[2018-02-26] MEDS ORDERED: Ondansetron 4 MG/2 ML SDV IV PRN (02:44)
[2018-02-26] MEDS ORDERED: oxyCODONE 5 MG Tab PO PRN (02:44)
[2018-02-26] MEDS ORDERED: IPRATROPIUM INH PRN (02:44)
[2018-02-26] MEDS ORDERED: Acetaminophen 325 MG Tab PO PRN (02:44)
[2018-02-26] MEDS ORDERED: Albuterol 0.083% 2.5 MG/3 ML Neb Soln NEB PRN ×2 (02:44)
[2018-02-26] MEDS ORDERED: Ondansetron 4 MG Tab.DIS PO PRN (02:44)
[2018-02-26] MEDS ORDERED: Morphine 2 MG/ML Syringe IVPUSH PRN (02:44)
[2018-02-26] MEDS ORDERED: ALBUTEROL INH PRN (02:44)
[2018-02-26] MEDS ORDERED: hydrOXYzine HCl 25 MG Tab PO PRN (02:44)
[2018-02-26] MEDS ORDERED: LORazepam 2 MG/ML SDV IV PRN (02:44)
[2018-02-26] MEDS ORDERED: Albuterol/Ipratropium 3.0-0.5 MG/3 ML Neb Soln INH PRN (03:07)
[2018-02-26] MEDS: Zolpidem 5 MG Tab PO PRN ×2 (04:26→23:44)
[2018-02-26] MEDS ORDERED: Nystatin Topical Powder 15 GM Bottle TOP SCH ×2 (06:00→10:00)
[2018-02-26] MEDS ORDERED: Diclofenac Sodium 1% Gel 100 GM Tube TOP SCH ×2 (06:00→10:00)
[2018-02-26] MEDS ORDERED: Formoterol/Mometasone 100-5 MCG 8.8 GM Inhaler IH PRN ×2 (07:00→07:53)
--- NOTE | 2018-02-26 07:53 | PCM.HP ---
H&P History of Present Illness - General Date of Service: 02/25/18 Admit Problem/Dx: Admission Diagnosis/Problem Admission Diagnosis/Problem Sepsis Source of Information: Patient, Provider History Limitations: Reports: No Limitations - History of Present Illness Initial Comments - Free Text/Narative: ER course and work up. Pt fell and landed on hr rt hip. She is not having alot of pain in the hip. She was so weak she was not able to get up . The ambulance was then called. She was just discharged from the hosp on the 4th, She had a UTI. She has not finished her course of bactrim. She has been quite weak all day. She did have a bad yeast infection when she was in the hosp the last time. Onset: Gradual, Other (Pt just did get gradually weaker through out the day, ) Duration: Other ( pt seemd to get worse today. ) Location: Reports: Other (pt has tenddrness in the rt hip. ) Associated Symptoms: Reports: Malaise, Weakness, Pt was not able to stand by herself. right hip pain Pain Score (Numeric/FACES): 5 LAB: urins shows 20-30 wbcs, Her bs is greater than 400. She states this started to be out of control today. Her urine was cultured. lactic acid 3.7, WBC 13.1, blood glucose 432 Xrays: of the rt hip and pelvis show no fractures. a; UTI with early sepsis will admit to hospitalist service Onset of Symptoms: Reports: Gradual Duration of Symptoms: Reports: Hour(s): Location: Reports: Generalized (weakness and fall at home. ) Quality: Reports: Same as Previous Episode Improves with: Reports: None Worsens with: Reports: None Associated Symptoms: Reports: Fever/Chills, Malaise, Weakness Right Hip Pain Score (Numeric/FACES): 3 - Related Data Allergies/Adverse Reactions: Allergies Allergy/AdvReac Type Severity Reaction Status Date / Time atenolol Allergy Abdominal Verified 04/05/17 07:44 Pain cephalexin Allergy Cannot Verified 04/05/17 07:44 Remember duloxetine HCl Allergy Cannot Verified 04/05/17 07:44 [From Cymbalta] Remember latex Allergy Cannot Verified 04/05/17 07:44 Remember lisinopril Allergy Cannot Verified 04/05/17 07:44 Remember Penicillins Allergy Cannot Verified 04/05/17 07:44 Remember silicone [Silicone] Allergy Cannot Verified 04/05/17 07:44 Remember pregabalin [From Lyrica] AdvReac Stomach Verified 04/05/17 07:44 Upset Home Medications: Home Meds Aspirin [Adult Low Dose Aspirin EC] 81 mg PO DAILY 03/20/14 [History] Budesonide/Formoterol [Symbicort 80-4.5 MCG] 2 puff INH BID PRN 03/20/14 [ History] Furosemide [Lasix] 40 mg PO DAILY 03/20/14 [History] Insulin Aspart [Novolog Flexpen] 12 units SUBCUT TIDMEALS 03/20/14 [History] Omeprazole 40 mg PO DAILY 03/20/14 [History] Oxybutynin Chloride [Ditropan Xl] 10 mg PO DAILY 03/20/14 [History] Simvastatin [Zocor] 20 mg PO BEDTIME 03/20/14 [History] hydrOXYzine Pamoate [Vistaril] 25 mg PO TID PRN 03/20/14 [History] traZODone 200 mg PO BEDTIME 03/20/14 [History] Albuterol/Ipratropium [Combivent] 1 puff INH Q4HR PRN 08/27/14 [History] azaTHIOprine [Azathioprine] 50 mg PO TID 08/27/14 [History] buPROPion [Wellbutrin XL] 300 mg PO DAILY 08/27/14 [History] Insulin Degludec [Tresiba Flextouch U-200] 110 units SQ DAILY 08/28/16 [History] Prasugrel HCl [Effient] 10 mg PO DAILY 11/16/16 [History] Albuterol [Proventil Neb Soln] 3 ml NEB Q4H PRN 04/03/17 [History] Carvedilol [Coreg] 6.25 mg PO BID 04/03/17 [History] Diclofenac Sodium [Voltaren 1% Gel] 4 gm TOP QID 04/03/17 [History] Latanoprost [Xalatan 0.005% Ophth Soln] 1 drop EYEBOTH BEDTIME 04/03/17 [History ] Methyl Salicylate/Menthol [Icy Hot Stick] 1 applic TOP QID PRN 04/03/17 [History ] Mupirocin Oint [Bactroban Oint] 1 applic TOP TID 04/03/17 [History] Potassium Chloride 20 meq PO DAILY 04/03/17 [History] SUMAtriptan [Imitrex] 50 mg PO ASDIRECTED PRN 04/03/17 [History] Salsalate 500 mg PO BID PRN 04/03/17 [History] metroNIDAZOLE [Metrogel] 1 applic TOP DAILY 04/03/17 [History] Nystatin 60 gm TP QID #60 gm 02/20/18 [Rx] Prasugrel HCl [Effient] 1 tab PO DAILY 02/26/18 [History] buPROPion HCl [Wellbutrin Xl] 300 mg PO DAILY 02/26/18 [History] Past Medical History HEENT History: Reports: Cataract, Hard of Hearing, Impaired Vision Cardiovascular History: Reports: CAD, High Cholesterol, Hypertension, [place], Stents Respiratory History: Reports: Asthma, COPD, Sleep Apnea Gastrointestinal History: Reports: Cholelithiasis, GERD Genitourinary History: Reports: Urinary Incontinence [employer] History: Reports: , Spontaneous Musculoskeletal History: Reports: Back Pain, Chronic, Fracture, Osteoarthritis Neurological History: Reports: Migraines Psychiatric History: Reports: Depression Endocrine/Metabolic History: Reports: Diabetes, Type II, Obesity/BMI 30+ Dermatologic History: Reports: Other (See Below) Other Dermatologic History: blisters - Infectious Disease History Infectious Disease History: Reports: Chicken Pox, Hepatitis A, Mumps - Past Surgical History HEENT Surgical History: Reports: Cataract Surgery Cardiovascular Surgical History: Reports: Coronary Artery Stent Respiratory Surgical History: Reports: None GI Surgical History: Reports: Appendectomy, Cholecystectomy Female Surgical History: Reports: Section, D&C, Hysterectomy, Salpingo-Oophorectomy Endocrine Surgical History: Reports: None Neurological Surgical History: Reports: None Musculoskeletal Surgical History: Reports: Arthroscopic Procedure, Carpal Tunnel , Other (See Below) Other Musculoskeletal Surgeries/Procedures:: ankle surgery on fx Dermatological Surgical History: Reports: None Social & Family History - Family History Family Medical History: Noncontributory - Tobacco Use Smoking Status *Q: Former Smoker Years of Tobacco use: 47 Packs/Tins Daily: 1 Used Tobacco, but Quit: Yes Month/Year Tobacco Last Used: February 2018 Second Hand Smoke Exposure: No - Caffeine Use Caffeine Use: Reports: None Other Caffeine Use: 1 cup/day - Alcohol Use Days Per Week of Alcohol Use: 0 - Recreational Drug Use Recreational Drug Use: No - Living Situation & Occupation Living situation: Reports: Single Occupation: Disabled H&P Review of Systems - Review of Systems: Review Of Systems: See Below General: Reports: Fever, Chills, Malaise, Weakness HEENT: Reports: No Symptoms Pulmonary: Reports: No Symptoms, Other (has COPD) Cardiovascular: Reports: No Symptoms Gastrointestinal: Reports: No Symptoms Genitourinary: Reports: Incontinence, Other (yeast infection of groin ) Musculoskeletal: Reports: Other (generalized muscle weakness) Skin: Reports: Rash (candidiasis rash to groin fold and genitalia) Psychiatric: Reports: No Symptoms Neurological: Reports: No Symptoms Hematologic/Lymphatic: Reports: No Symptoms Immunologic: Reports: No Symptoms Exam - Exam Exam: See Below - Vital Signs Vital Signs: Last Vital Signs Temp 35.7 C 02/26/18 07:26 Pulse 73 02/26/18 07:26 Resp 16 02/26/18 07:26 BP 114/61 02/26/18 07:26 Pulse Ox 90 L 02/26/18 07:26 Weight: 127.913 kg - Exam Quality Assessment: DVT Prophylaxis, Skin Breakdown General: Alert, Oriented, Cooperative HEENT: PERRLA, Conjunctiva Clear, EACs Clear, EOMI, Hearing Intact, Mucosa Moist & [place], Nares Patent, Normal Nasal Septum Neck: Supple, Trachea Midline Lungs: Clear to Auscultation, Normal Respiratory Effort Cardiovascular: Regular Rate, Regular Rhythm GI/Abdominal Exam: Normal Bowel Sounds, Soft, Non-Tender (Female) Exam: Other (yeast rash noted to external genitalia and groin fold. ) Rectal (Female) Exam: Deferred Back Exam: Normal Inspection Extremities: Pedal Edema Skin: Rash Neurological: Cranial Nerves Intact, Reflexes Equal Bilateral Neuro Extensive - Mental Status: Alert, Oriented x3, Normal Mood/Affect, Normal Cognition, Memory Intact Neuro Extensive - Motor, Sensory, Reflexes: Motor/Sensory Deficits Psychiatric: Alert, Normal Affect, Normal Mood - Patient Data Lab Results Last 24 hrs: Laboratory Results - last 24 hr 02/25/18 02/25/18 02/26/18 Range/Units 23:27 23:27 00:02 WBC 13.1 H (4.5-11.0) K/uL RBC 4.85 (3.30-5.50) M/uL Hgb 15.3 H (12.0-15.0) g/dL Hct 44.6 (36.0-48.0) % MCV 92 (80-98) fL MCH 32 H (27-31) pg MCHC 34 (32-36) % Plt Count 311 (150-400) K/uL Neut % (Auto) 76 H (36-66) % Lymph % (Auto) 15 L (24-44) % Nicholas % (Auto) 7 H (2-6) % Eos % (Auto) 2 (2-4) % Baso % (Auto) 1 (0-1) % Sodium 134 L (140-148) mmol/L Potassium 4.2 (3.6-5.2) mmol/L Chloride 96 L (100-108) mmol/L Carbon Dioxide 29 (21-32) mmol/L Anion Gap 13.2 (5.0-14.0) mmol/L BUN 15 (7-18) mg/dL Creatinine 1.2 H (0.6-1.0) mg/dL Est Cr Clr Drug Dosing TNP Estimated GFR (MDRD) 45 L (>60) Glucose 432 H* (74-106) mg/dL Lactic Acid (0.4-2.0) mmol/L Calcium 9.0 (8.5-10.1) mg/dL Total Bilirubin 0.3 (0.2-1.0) mg/dL AST 24 (15-37) U/L ALT 41 (12-78) U/L Alkaline Phosphatase 168 H (46-116) U/L C-Reactive Protein (0.0-0.3) mg/dL NT-Pro-B Natriuret Pep (5-125) pg/mL Total Protein 7.5 (6.4-8.2) g/dL Albumin 2.9 L (3.4-5.0) g/dL Globulin 4.6 H (2.3-3.5) g/dL Albumin/Globulin Ratio 0.6 L (1.2-2.2) Urine Color Yellow Urine Appearance Cloudy Urine pH 5.0 (4.5-8.0) Ur Specific [place] 1.015 (1.008-1.030) Urine Protein Negative (NEGATIVE) mg/dL Urine Glucose (UA) 1000 H (NEGATIVE) mg/dL Urine Ketones Negative (NEGATIVE) mg/dL Urine Occult Blood Moderate (NEGATIVE) Urine Nitrite Negative (NEGATIVE) Urine Bilirubin Negative (NEGATIVE) Urine Urobilinogen Normal (NORMAL) mg/dL Ur Leukocyte Esterase Large (NEGATIVE) Urine RBC 10-20 H (0-5) Urine WBC 20-30 H (0-5) Ur Epithelial Cells Many Amorphous Sediment Few Urine Bacteria Many Urine Mucus Not seen 02/26/18 02/26/18 02/26/18 Range/Units 00:30 00:34 04:45 WBC (4.5-11.0) K/uL RBC (3.30-5.50) M/uL Hgb (12.0-15.0) g/dL Hct (36.0-48.0) % MCV (80-98) fL MCH (27-31) pg MCHC (32-36) % Plt Count (150-400) K/uL Neut % (Auto) (36-66) % Lymph % (Auto) (24-44) % Nicholas % (Auto) (2-6) % Eos % (Auto) (2-4) % Baso % (Auto) (0-1) % Sodium (140-148) mmol/L Potassium (3.6-5.2) mmol/L Chloride (100-108) mmol/L Carbon Dioxide (21-32) mmol/L Anion Gap (5.0-14.0) mmol/L BUN (7-18) mg/dL Creatinine (0.6-1.0) mg/dL Est Cr Clr Drug Dosing Estimated GFR (MDRD) (>60) Glucose (74-106) mg/dL Lactic Acid 3.7 H 1.9 (0.4-2.0) mmol/L Calcium (8.5-10.1) mg/dL Total Bilirubin (0.2-1.0) mg/dL AST (15-37) U/L ALT (12-78) U/L Alkaline Phosphatase (46-116) U/L C-Reactive Protein (0.0-0.3) mg/dL NT-Pro-B Natriuret Pep 65 (5-125) pg/mL Total Protein (6.4-8.2) g/dL Albumin (3.4-5.0) g/dL Globulin (2.3-3.5) g/dL Albumin/Globulin Ratio (1.2-2.2) Urine Color Urine Appearance Urine pH (4.5-8.0) Ur Specific [place] (1.008-1.030) Urine Protein (NEGATIVE) mg/dL Urine Glucose (UA) (NEGATIVE) mg/dL Urine Ketones (NEGATIVE) mg/dL Urine Occult Blood (NEGATIVE) Urine Nitrite (NEGATIVE) Urine Bilirubin (NEGATIVE) Urine Urobilinogen (NORMAL) mg/dL Ur Leukocyte Esterase (NEGATIVE) Urine RBC (0-5) Urine WBC (0-5) Ur Epithelial Cells Amorphous Sediment Urine Bacteria Urine Mucus 02/26/18 02/26/18 Range/Units 04:45 04:45 WBC (4.5-11.0) K/uL RBC (3.30-5.50) M/uL Hgb (12.0-15.0) g/dL Hct (36.0-48.0) % MCV (80-98) fL MCH (27-31) pg MCHC (32-36) % Plt Count (150-400) K/uL Neut % (Auto) (36-66) % Lymph % (Auto) (24-44) % Nicholas % (Auto) (2-6) % Eos % (Auto) (2-4) % Baso % (Auto) (0-1) % Sodium 137 L (140-148) mmol/L Potassium 3.9 (3.6-5.2) mmol/L Chloride 102 (100-108) mmol/L Carbon Dioxide 29 (21-32) mmol/L Anion Gap 9.9 (5.0-14.0) mmol/L BUN 13 (7-18) mg/dL Creatinine 0.9 (0.6-1.0) mg/dL Est Cr Clr Drug Dosing 55.33 Estimated GFR (MDRD) > 60 (>60) Glucose 263 H (74-106) mg/dL Lactic Acid (0.4-2.0) mmol/L Calcium 8.3 L (8.5-10.1) mg/dL Total Bilirubin (0.2-1.0) mg/dL AST (15-37) U/L ALT (12-78) U/L Alkaline Phosphatase (46-116) U/L C-Reactive Protein 2.41 H (0.0-0.3) mg/dL NT-Pro-B Natriuret Pep (5-125) pg/mL Total Protein (6.4-8.2) g/dL Albumin (3.4-5.0) g/dL Globulin (2.3-3.5) g/dL Albumin/Globulin Ratio (1.2-2.2) Urine Color Urine Appearance Urine pH (4.5-8.0) Ur Specific [place] (1.008-1.030) Urine Protein (NEGATIVE) mg/dL Urine Glucose (UA) (NEGATIVE) mg/dL Urine Ketones (NEGATIVE) mg/dL Urine Occult Blood (NEGATIVE) Urine Nitrite (NEGATIVE) Urine Bilirubin (NEGATIVE) Urine Urobilinogen (NORMAL) mg/dL Ur Leukocyte Esterase (NEGATIVE) Urine RBC (0-5) Urine WBC (0-5) Ur Epithelial Cells Amorphous Sediment Urine Bacteria Urine Mucus Result Diagrams: 02/25/18 23:27 02/26/18 04:45 - Problem List (1) Sepsis SNOMED Code(s): 05943301 ICD Code: A41.9 - SEPSIS, UNSPECIFIED ORGANISM Status: Acute Current Visit: Yes Qualifiers: Sepsis type: sepsis due to unspecified organism Qualified Code(s): A41.9 - Sepsis, unspecified organism (2) UTI (urinary tract infection) SNOMED Code(s): 06684044 ICD Code: N39.0 - URINARY TRACT INFECTION, SITE NOT SPECIFIED Status: Acute Priority: High Current Visit: Yes Qualifiers: Encounter type: initial encounter (3) Yeast infection SNOMED Code(s): 6879556 ICD Code: B37.9 - CANDIDIASIS, UNSPECIFIED Status: Acute Priority: High Current Visit: Yes (4) Diabetes mellitus SNOMED Code(s): 16905720 ICD Code: E11.9 - TYPE 2 DIABETES MELLITUS WITHOUT COMPLICATIONS Status: Chronic Priority: Medium Current Visit: No Qualifiers: Diabetes mellitus type: type 2 Diabetes mellitus complication status: with skin complications Diabetes mellitus complication detail: with dermatitis Problem List Initiated/Reviewed/Updated: Yes Orders Last 24hrs: Active Orders 24 hr Category Date Time Status Patient Status [ADT] Routine ADT 02/26/18 02:44 Active Diabetes Education [RC] Click to Edit Care 02/26/18 02:44 Active Intake and Output [RC] QSHIFT Care 02/26/18 02:44 Active Notify Provider Vital Signs [RC] ASDIRECTED Care 02/26/18 02:44 Active Notify Provider [RC] PRN Care 02/26/18 02:44 Active Oxygen Therapy [RC] PRN Care 02/26/18 02:44 Active RT Aerosol Therapy [RC] ASDIRECTED Care 02/26/18 02:44 Active Up to Chair [RC] QID Care 02/26/18 02:44 Active Vital Signs [RC] Q4H Care 02/26/18 02:44 Active OT Evaluation and Treatment [CONS] Routine Cons 02/26/18 02:44 Active PT Evaluation and Treatment [CONS] Routine Cons 02/26/18 02:44 Active Consistent Carbohydrate Diet [DIET] Diet 02/26/18 Breakfast Active Chest 1V Frontal [CR] Stat Exams 02/26/18 00:01 Taken Hip Min 2V or 3V w Pelvis Rt [CR] Stat Exams 02/26/18 00:48 Taken CULTURE BLOOD [BC] Urgent Lab 02/26/18 00:32 Received CULTURE BLOOD [BC] Urgent Lab 02/26/18 00:44 Received CULTURE URINE [RM] Stat Lab 02/26/18 00:33 Received GLUCOSE POC LAB TO COLLECT [POC] QIDACANDBED Lab 02/26/18 11:30 Ordered GLUCOSE POC LAB TO COLLECT [POC] QIDACANDBED Lab 02/26/18 16:30 Ordered GLUCOSE POC LAB TO COLLECT [POC] QIDACANDBED Lab 02/26/18 21:00 Ordered UA W/MICROSCOPIC [URIN] Urgent Lab 02/26/18 00:02 Ordered Acetaminophen [Tylenol] Med 02/26/18 02:44 Active 650 mg PO Q4H PRN Albuterol [Proventil Neb Soln] Med 02/26/18 02:44 Active 2.5 mg NEB Q4H PRN Albuterol/Ipratropium [DuoNeb 3.0-0.5 MG/3 ML] Med 02/26/18 03:07 Active 3 ml INH Q4H PRN Aspirin [Halfprin] Med 02/26/18 09:00 Active 81 mg PO DAILY Aztreonam/Dextrose-Water [Azactam in Dextrose,Iso- Med 02/26/18 10:00 Active Osmotic 1 GM/50 ML] 1 gm Premix Bag 1 bag IV Q8H Carvedilol [Coreg] Med 02/26/18 08:00 Active 6.25 mg PO BIDMEALS Clindamycin Phosphate [Cleocin] 300 mg Med 02/26/18 03:00 Active Sodium Chloride 0.9% [Normal Saline] 50 ml IV Q6H Diclofenac Sodium [Voltaren 1% Gel] Med 02/26/18 10:00 Active 0 gm TOP QID Docusate Sodium [Colace] Med 02/26/18 02:44 Active 100 mg PO BID PRN Enoxaparin [Lovenox] Med 02/26/18 09:00 Active 40 mg SUBCUT DAILY Furosemide [Lasix] Med 02/26/18 09:00 Active 40 mg PO DAILY Insulin Aspart [NovoLOG] Med 02/26/18 09:00 Pending 10 unit SUBCUT TID Insulin Aspart [NovoLOG] Med 02/26/18 08:00 Pending 12 unit SUBCUT TIDMEALS Insulin Aspart [NovoLOG] Med 02/26/18 07:00 Active See Protocol SUBCUT QIDACANDBED LORazepam [Ativan] Med 02/26/18 02:44 Active 1 mg IV Q6H PRN Latanoprost [Xalatan 0.005% Ophth Soln] Med 02/26/18 21:00 Active 0 ml EYEBOTH BEDTIME Mometasone/Formoterol [Dulera 100-5 MCG] Med 02/26/18 07:00 Active 2 puff IH BIDRT PRN Morphine Med 02/26/18 02:44 Active 2 mg IVPUSH Q2H PRN Nystatin [Nystop] Med 02/26/18 06:00 Active See Dose Instructions TOP QID Ondansetron [Zofran ODT] Med 02/26/18 02:44 Active 4 mg PO Q6H PRN Ondansetron [Zofran] Med 02/26/18 02:44 Active 4 mg IV Q4H PRN Potassium Chloride [Klor-Con M20] Med 02/26/18 09:00 Active 20 meq PO DAILY Sodium Chloride 0.9% [Normal Saline] 1,000 ml Med 02/26/18 02:44 Active IV ASDIRECTED Zolpidem [Ambien] Med 02/26/18 02:44 Active 5 mg PO BEDTIME PRN azaTHIOprine [Imuran] Med 02/26/18 09:00 Active 50 mg PO TIDPC buPROPion [Wellbutrin XL] Med 02/26/18 09:00 Active 300 mg PO DAILY hydrOXYzine HCl [Atarax] Med 02/26/18 02:44 Active 25 mg PO TID PRN metroNIDAZOLE [Metrogel] Med 02/26/18 09:00 Pending 1 applic TOP DAILY oxyCODONE Med 02/26/18 02:44 Active 5 mg PO Q4H PRN Blood Culture x2 Reflex Set [OM.PC] Urgent Oth 02/26/18 00:31 Ordered Resuscitation Status Routine Resus Stat 02/26/18 02:06 Ordered EKG 12 Lead [EK] Routine Ther 02/25/18 23:16 Ordered Medication Orders Acetaminophen (Tylenol) 650 mg PO Q4H PRN PRN Reason: Pain (Mild 1-3)/fever Albuterol (Proventil Neb Soln) 2.5 mg NEB Q4H PRN PRN Reason: Dyspnea/wheezing Albuterol/Ipratropium (Duoneb 3.0-0.5 Mg/3 Ml) 3 ml INH Q4H PRN PRN Reason: SHORTNESS OF BREATH Aspirin (Halfprin) 81 mg PO DAILY [facility] Azathioprine (Imuran) 50 mg PO TIDPC [facility] Bupropion HCl (Wellbutrin Xl) 300 mg PO DAILY [facility] Carvedilol (Coreg) 6.25 mg PO BIDMEALS [facility] Diclofenac Sodium (Voltaren 1% Gel) 0 gm TOP QID [facility] Docusate Sodium (Colace) 100 mg PO BID PRN PRN Reason: Constipation Enoxaparin Sodium (Lovenox) 40 mg SUBCUT DAILY [facility] Furosemide (Lasix) 40 mg PO DAILY [facility] Hydroxyzine HCl (Atarax) 25 mg PO TID PRN PRN Reason: Itching Clindamycin Phosphate 300 mg/ (Sodium Chloride) 52 mls @ 150 mls/hr IV Q6H [facility] Last Admin: 02/26/18 03:35 Dose: 150 mls/hr Sodium Chloride (Normal Saline) 1,000 mls @ 125 mls/hr IV ASDIRECTED [facility] Last Admin: 02/26/18 03:40 Dose: 125 mls/hr Aztreonam/Dextrose 1 gm/ (Premix) 50 mls @ 100 mls/hr IV Q8H [facility] Insulin Aspart (Novolog) 0 unit SUBCUT QIDACANDBED [facility]; Protocol Insulin Aspart (Novolog) 10 unit SUBCUT TID KATELIN Insulin Aspart (Novolog) 12 unit SUBCUT TIDMEALS [facility] Latanoprost (Xalatan 0.005% Ophth Soln) 0 ml EYEBOTH BEDTIME KATELIN Lorazepam (Ativan) 1 mg IV Q6H PRN PRN Reason: Nausea/Vomiting Mometasone Furoate/Formoterol Fumar (Dulera 100-5 Mcg) 2 puff IH BIDRT PRN PRN Reason: shortness of breath Morphine Sulfate (Morphine) 2 mg IVPUSH Q2H PRN PRN Reason: Pain (severe 7-10) Non-Formulary Medication (Metronidazole [Metrogel]) 1 applic TOP DAILY [facility] Nystatin (Nystop) 0 gm TOP QID [facility] Ondansetron HCl (Zofran Odt) 4 mg PO Q6H PRN PRN Reason: Nausea able to take PO Ondansetron HCl (Zofran) 4 mg IV Q4H PRN PRN Reason: Nausea/Vomiting Oxycodone HCl (Oxycodone) 5 mg PO Q4H PRN PRN Reason: Pain (moderate 4-6) Last Admin: 02/26/18 07:46 Dose: 5 mg Potassium Chloride (Klor-Con M20) 20 meq PO DAILY [facility] Zolpidem Tartrate (Ambien) 5 mg PO BEDTIME PRN PRN Reason: Sleep Last Admin: 02/26/18 04:26 Dose: 5 mg Assessment/Plan Comment:: Assessment/Plan Comment:: ASSESSMENT AND PLAN URINARY TRACT INFECTION with early sepsis-associated with recent symptoms of incontinence, having failed a recent course of outpatient antibiotic therapy. Urinalysis obtained today at the clinic shows evidence of ongoing infection. -Urine culture pending - IV aztreonam and clindamycin, pending culture results YEAST DERMATITIS -associated with significant erythema and inflammation with associated pain in the leg folds and perineal region. No evidence of active cellulitis at the present time - keep areas dry as possible - nystatin powder to the area 4 times daily TYPE 2 DIABETES MELLITUS -history of recent and long-term poor control, most recent hemoglobin A1c obtained at the clinic was elevated at greater than 10 - continue usual dose of short and long acting insulin -moderate dose sliding scale NovoLog -4 times a day glucometers MAINTENANCE ISSUES -DVT prophylaxis; Lovenox 40 mg subcutaneous daily -GI prophylaxis; IV Protonix 40 mg every 24 hours -Watts catheter; not indicated -Nutrition;Consistent carb diet -Nicotine dependence; not required -consult to OT and PT CODE STATUS- FULL CODE ADMISSION STATUS-this patient will be admitted to observation status, expect no more than a one night hospital stay for evaluation and management of problems as outlined above. DISPOSITION-anticipate discharge to home after the hospital stay. PRIMARY CARE PROVIDER-Dr. Alexander Hospitalist: Dr. Alphonso Scott Additional CC's: Danilo Alexander
[2018-02-26] MEDS ORDERED: Insulin Aspart 100 Units/ML 3 ML Pen SUBCUT SCH (08:00)
--- NOTE | 2018-02-26 08:46 | CR ---
Hip Min 2V or 3V w Pelvis Rt INDICATION: fell and landed on the rt hip area. FINDINGS: Mild degenerative change both hips. No evidence for acute fracture.
--- NOTE | 2018-02-26 08:47 | CR ---
Chest 1V Frontal INDICATION: sob FINDINGS: Comparison 04/04/2011. Hypertrophic changes thoracic spine. Slight scattered fibrosis or ate lectasis. Exam otherwise negative.
[2018-02-26] MEDS ORDERED: Insulin Detemir 100 Units/ML 3 ML Pen SUBCUT SCH ×2 (09:00)
[2018-02-26] MEDS ORDERED: BUPROPION 300 MG PO SCH (09:00)
[2018-02-26] MEDS ORDERED: INSULIN DEGLUDEC 110 UNIT SQ SCH (09:00)
[2018-02-26] MEDS ORDERED: Enoxaparin 40 MG/0.4 ML Syringe SUBCUT SCH (09:00)
[2018-02-26] MEDS: Insulin Aspart 100 Units/ML 3 ML Pen SUBCUT SCH ×6 (09:05→21:41)
[2018-02-26] MEDS: Aztreonam/Dextrose-Water 1 GM in Premix Bag 1 BAG IV SCH ×2 (10:08→17:40)
[2018-02-26] MEDS: buPROPion 150 MG Tab.ER PO SCH (10:10)
[2018-02-26] MEDS: Aspirin 81 MG Tab.EC PO SCH (10:11)
[2018-02-26] MEDS: Potassium Chloride 20 MEQ Tab.ER PO SCH (10:11)
[2018-02-26] MEDS: Carvedilol 6.25 MG Tab PO SCH ×2 (10:11→16:56)
[2018-02-26] MEDS: Furosemide 40 MG Tab PO SCH (10:13)
[2018-02-26] MEDS: Enoxaparin 40 MG/0.4 ML Syringe SUBCUT SCH (10:15)
[2018-02-26] MEDS: Nystatin Topical Powder 15 GM Bottle TOP SCH ×3 (10:17→21:48)
[2018-02-26] MEDS: Insulin Detemir 100 Units/ML 3 ML Pen SUBCUT SCH ×2 (10:18→21:45)
[2018-02-26] MEDS: Diclofenac Sodium 1% Gel 100 GM Tube TOP SCH ×3 (10:18→21:49)
--- NOTE | 2018-02-26 12:03 | PCM.PN ---
- General Info Date of Service: 02/26/18 Functional Status: Reports: Tolerating Diet - Review of Systems General: Reports: Weakness Musculoskeletal: Reports: Leg Pain (right hip) Systems Review Comment:: No acute events since admission. Lactic acid level has normalized and vital signs have been stable. No complaints of abdominal pain but she does have ongoing right hip pain. This pain does respond to pain pills but pain is controlled for only 2-3 hours. No fevers overnight. Urine culture is pending at this time. Blood sugars still moderately elevated. - Patient Data Vitals - Most Recent: Last Vital Signs Temp 35.4 C 02/26/18 10:30 Pulse 76 02/26/18 10:30 Resp 16 02/26/18 10:30 BP 109/55 L 02/26/18 10:30 Pulse Ox 92 L 02/26/18 10:30 Weight - Most Recent: 127.913 kg I&O - Last 24 Hours: Intake & Output 02/25/18 02/26/18 02/26/18 22:59 06:59 14:59 Intake Total 460 Balance 460 Lab Results Last 24 Hours: Laboratory Results - last 24 hr 02/25/18 02/25/18 02/26/18 Range/Units 23:27 23:27 00:02 WBC 13.1 H (4.5-11.0) K/uL RBC 4.85 (3.30-5.50) M/uL Hgb 15.3 H (12.0-15.0) g/dL Hct 44.6 (36.0-48.0) % MCV 92 (80-98) fL MCH 32 H (27-31) pg MCHC 34 (32-36) % Plt Count 311 (150-400) K/uL Neut % (Auto) 76 H (36-66) % Lymph % (Auto) 15 L (24-44) % Gladwin % (Auto) 7 H (2-6) % Eos % (Auto) 2 (2-4) % Baso % (Auto) 1 (0-1) % Sodium 134 L (140-148) mmol/L Potassium 4.2 (3.6-5.2) mmol/L Chloride 96 L (100-108) mmol/L Carbon Dioxide 29 (21-32) mmol/L Anion Gap 13.2 (5.0-14.0) mmol/L BUN 15 (7-18) mg/dL Creatinine 1.2 H (0.6-1.0) mg/dL Est Cr Clr Drug Dosing TNP Estimated GFR (MDRD) 45 L (>60) Glucose 432 H* (74-106) mg/dL Lactic Acid (0.4-2.0) mmol/L Calcium 9.0 (8.5-10.1) mg/dL Total Bilirubin 0.3 (0.2-1.0) mg/dL AST 24 (15-37) U/L ALT 41 (12-78) U/L Alkaline Phosphatase 168 H (46-116) U/L C-Reactive Protein (0.0-0.3) mg/dL NT-Pro-B Natriuret Pep (5-125) pg/mL Total Protein 7.5 (6.4-8.2) g/dL Albumin 2.9 L (3.4-5.0) g/dL Globulin 4.6 H (2.3-3.5) g/dL Albumin/Globulin Ratio 0.6 L (1.2-2.2) Urine Color Yellow Urine Appearance Cloudy Urine pH 5.0 (4.5-8.0) Ur Specific Wagoner 1.015 (1.008-1.030) Urine Protein Negative (NEGATIVE) mg/dL Urine Glucose (UA) 1000 H (NEGATIVE) mg/dL Urine Ketones Negative (NEGATIVE) mg/dL Urine Occult Blood Moderate (NEGATIVE) Urine Nitrite Negative (NEGATIVE) Urine Bilirubin Negative (NEGATIVE) Urine Urobilinogen Normal (NORMAL) mg/dL Ur Leukocyte Esterase Large (NEGATIVE) Urine RBC 10-20 H (0-5) Urine WBC 20-30 H (0-5) Ur Epithelial Cells Many Amorphous Sediment Few Urine Bacteria Many Urine Mucus Not seen 02/26/18 02/26/18 02/26/18 Range/Units 00:30 00:34 04:45 WBC (4.5-11.0) K/uL RBC (3.30-5.50) M/uL Hgb (12.0-15.0) g/dL Hct (36.0-48.0) % MCV (80-98) fL MCH (27-31) pg MCHC (32-36) % Plt Count (150-400) K/uL Neut % (Auto) (36-66) % Lymph % (Auto) (24-44) % Gladwin % (Auto) (2-6) % Eos % (Auto) (2-4) % Baso % (Auto) (0-1) % Sodium (140-148) mmol/L Potassium (3.6-5.2) mmol/L Chloride (100-108) mmol/L Carbon Dioxide (21-32) mmol/L Anion Gap (5.0-14.0) mmol/L BUN (7-18) mg/dL Creatinine (0.6-1.0) mg/dL Est Cr Clr Drug Dosing Estimated GFR (MDRD) (>60) Glucose (74-106) mg/dL Lactic Acid 3.7 H 1.9 (0.4-2.0) mmol/L Calcium (8.5-10.1) mg/dL Total Bilirubin (0.2-1.0) mg/dL AST (15-37) U/L ALT (12-78) U/L Alkaline Phosphatase (46-116) U/L C-Reactive Protein (0.0-0.3) mg/dL NT-Pro-B Natriuret Pep 65 (5-125) pg/mL Total Protein (6.4-8.2) g/dL Albumin (3.4-5.0) g/dL Globulin (2.3-3.5) g/dL Albumin/Globulin Ratio (1.2-2.2) Urine Color Urine Appearance Urine pH (4.5-8.0) Ur Specific Wagoner (1.008-1.030) Urine Protein (NEGATIVE) mg/dL Urine Glucose (UA) (NEGATIVE) mg/dL Urine Ketones (NEGATIVE) mg/dL Urine Occult Blood (NEGATIVE) Urine Nitrite (NEGATIVE) Urine Bilirubin (NEGATIVE) Urine Urobilinogen (NORMAL) mg/dL Ur Leukocyte Esterase (NEGATIVE) Urine RBC (0-5) Urine WBC (0-5) Ur Epithelial Cells Amorphous Sediment Urine Bacteria Urine Mucus 02/26/18 02/26/18 Range/Units 04:45 04:45 WBC (4.5-11.0) K/uL RBC (3.30-5.50) M/uL Hgb (12.0-15.0) g/dL Hct (36.0-48.0) % MCV (80-98) fL MCH (27-31) pg MCHC (32-36) % Plt Count (150-400) K/uL Neut % (Auto) (36-66) % Lymph % (Auto) (24-44) % Gladwin % (Auto) (2-6) % Eos % (Auto) (2-4) % Baso % (Auto) (0-1) % Sodium 137 L (140-148) mmol/L Potassium 3.9 (3.6-5.2) mmol/L Chloride 102 (100-108) mmol/L Carbon Dioxide 29 (21-32) mmol/L Anion Gap 9.9 (5.0-14.0) mmol/L BUN 13 (7-18) mg/dL Creatinine 0.9 (0.6-1.0) mg/dL Est Cr Clr Drug Dosing 55.33 Estimated GFR (MDRD) > 60 (>60) Glucose 263 H (74-106) mg/dL Lactic Acid (0.4-2.0) mmol/L Calcium 8.3 L (8.5-10.1) mg/dL Total Bilirubin (0.2-1.0) mg/dL AST (15-37) U/L ALT (12-78) U/L Alkaline Phosphatase (46-116) U/L C-Reactive Protein 2.41 H (0.0-0.3) mg/dL NT-Pro-B Natriuret Pep (5-125) pg/mL Total Protein (6.4-8.2) g/dL Albumin (3.4-5.0) g/dL Globulin (2.3-3.5) g/dL Albumin/Globulin Ratio (1.2-2.2) Urine Color Urine Appearance Urine pH (4.5-8.0) Ur Specific Wagoner (1.008-1.030) Urine Protein (NEGATIVE) mg/dL Urine Glucose (UA) (NEGATIVE) mg/dL Urine Ketones (NEGATIVE) mg/dL Urine Occult Blood (NEGATIVE) Urine Nitrite (NEGATIVE) Urine Bilirubin (NEGATIVE) Urine Urobilinogen (NORMAL) mg/dL Ur Leukocyte Esterase (NEGATIVE) Urine RBC (0-5) Urine WBC (0-5) Ur Epithelial Cells Amorphous Sediment Urine Bacteria Urine Mucus Med Orders - Current: Current Medications Acetaminophen (Tylenol) 650 mg PO Q4H PRN PRN Reason: Pain (Mild 1-3)/fever Last Admin: 02/26/18 10:54 Dose: 650 mg Albuterol (Proventil Neb Soln) 2.5 mg NEB Q4H PRN PRN Reason: Dyspnea/wheezing Albuterol/Ipratropium (Duoneb 3.0-0.5 Mg/3 Ml) 3 ml INH Q4H PRN PRN Reason: SHORTNESS OF BREATH Aspirin (Halfprin) 81 mg PO DAILY [facility] Last Admin: 02/26/18 10:11 Dose: 81 mg Azathioprine (Imuran) 50 mg PO TIDPC [facility] Last Admin: 02/26/18 10:14 Dose: 50 mg Bupropion HCl (Wellbutrin Xl) 300 mg PO DAILY [facility] Last Admin: 02/26/18 10:10 Dose: 300 mg Carvedilol (Coreg) 6.25 mg PO BIDMEALS [facility] Last Admin: 02/26/18 10:11 Dose: 6.25 mg Diclofenac Sodium (Voltaren 1% Gel) 0 gm TOP QID [facility] Last Admin: 02/26/18 10:18 Dose: Not Given Docusate Sodium (Colace) 100 mg PO BID PRN PRN Reason: Constipation Enoxaparin Sodium (Lovenox) 40 mg SUBCUT Q24H [facility] Last Admin: 02/26/18 10:15 Dose: 40 mg Furosemide (Lasix) 40 mg PO DAILY [facility] Last Admin: 02/26/18 10:13 Dose: 40 mg Hydroxyzine HCl (Atarax) 25 mg PO TID PRN PRN Reason: Itching Clindamycin Phosphate 300 mg/ (Sodium Chloride) 52 mls @ 150 mls/hr IV Q6H [facility] Last Admin: 02/26/18 08:46 Dose: 150 mls/hr Sodium Chloride (Normal Saline) 1,000 mls @ 125 mls/hr IV ASDIRECTED [facility] Last Admin: 02/26/18 03:40 Dose: 125 mls/hr Aztreonam/Dextrose 1 gm/ (Premix) 50 mls @ 100 mls/hr IV Q8H [facility] Last Admin: 02/26/18 10:08 Dose: 100 mls/hr Insulin Aspart (Novolog) 0 unit SUBCUT QIDACANDBED [facility]; Protocol Last Admin: 02/26/18 11:48 Dose: 8 units Insulin Aspart (Novolog) 10 unit SUBCUT TIDMEALS [facility] Last Admin: 02/26/18 11:48 Dose: 10 units Insulin Detemir (Levemir) 55 unit SUBCUT BID [facility] Last Admin: 02/26/18 10:18 Dose: 55 units Latanoprost (Xalatan 0.005% Ophth Soln) 0 ml EYEBOTH BEDTIME [facility] Lorazepam (Ativan) 1 mg IV Q6H PRN PRN Reason: Nausea/Vomiting Mometasone Furoate/Formoterol Fumar (Dulera 100-5 Mcg) 2 puff IH BIDRT PRN PRN Reason: shortness of breath Morphine Sulfate (Morphine) 2 mg IVPUSH Q2H PRN PRN Reason: Pain (severe 7-10) Non-Formulary Medication (Metronidazole [Metrogel]) 1 applic TOP DAILY [facility] Nystatin (Nystop) 0 gm TOP QID [facility] Last Admin: 02/26/18 10:17 Dose: 1 applic Ondansetron HCl (Zofran Odt) 4 mg PO Q6H PRN PRN Reason: Nausea able to take PO Ondansetron HCl (Zofran) 4 mg IV Q4H PRN PRN Reason: Nausea/Vomiting Oxycodone HCl (Oxycodone) 5 - 10 mg PO Q4H PRN PRN Reason: Pain (moderate 4-6) Potassium Chloride (Klor-Con M20) 20 meq PO DAILY [facility] Last Admin: 02/26/18 10:11 Dose: 20 meq Zolpidem Tartrate (Ambien) 5 mg PO BEDTIME PRN PRN Reason: Sleep Last Admin: 02/26/18 04:26 Dose: 5 mg Discontinued Medications Albuterol (Proventil Neb Soln) 2.5 mg NEB Q4H PRN PRN Reason: Shortness Of Breath/wheezing Sodium Chloride (Normal Saline) 1,000 mls @ 999 mls/hr IV ASDIRECTED [facility] Last Admin: 02/26/18 00:36 Dose: 999 mls/hr Sodium Chloride (Normal Saline) 1,000 mls @ 999 mls/hr IV ASDIRECTED [facility] Last Admin: 02/26/18 01:46 Dose: 999 mls/hr Aztreonam 1 gm/ Sodium (Chloride) 50 mls @ 100 mls/hr IV ONETIME ONE Stop: 02/26/18 01:57 Last Admin: 02/26/18 01:43 Dose: 100 mls/hr Insulin Aspart (Novolog) 12 unit SUBCUT TIDMEALS [facility] Last Admin: 02/26/18 09:02 Dose: Not Given Insulin Human Regular (Novolin R) 5 unit SUBCUT ONETIME ONE; Protocol Stop: 02/26/18 00:34 Last Admin: 02/26/18 00:40 Dose: 5 unit Non-Formulary Medication (Bupropion [Wellbutrin Xl]) 300 mg PO DAILY [facility] Oxycodone HCl (Oxycodone) 5 mg PO Q4H PRN PRN Reason: Pain (moderate 4-6) Last Admin: 02/26/18 07:46 Dose: 5 mg - Exam Quality Assessment: No: Supplemental Oxygen General: Alert, Oriented, Cooperative, No Acute Distress Neck: Supple Lungs: Normal Respiratory Effort GI/Abdominal Exam: Soft, No Distention Extremities: No Pedal Edema Skin: Warm, Dry Psy/Mental Status: Alert, Normal Affect - Problem List Review Problem List Initiated/Reviewed/Updated: Yes - My Orders Last 24 Hours: My Active Orders 02/26/18 09:32 Admission Status [Patient Status] [ADT] Routine 02/26/18 10:45 oxyCODONE 5 - 10 mg PO Q4H PRN 02/26/18 12:15 Sodium Chloride 0.9% [Normal Saline] 1,000 ml IV ASDIRECTED 02/27/18 05:00 BASIC METABOLIC PANEL,BMP [CHEM] Timed CBC W/O DIFF,HEMOGRAM [HEME] Timed (1) - Plan Plan:: ASSESSMENT AND PLAN URINARY TRACT INFECTION with sepsis - failed a recent course of outpatient antibiotic therapy. Multiple allergies makes choosing antibiotics more difficult. Sepsis has resolved and lactic acid level has normalized. -Follow-up urine culture -Continue gentle IV fluids -IV aztreonam and clindamycin, pending culture results -Physical therapy for strengthening YEAST DERMATITIS - erythema and inflammation with associated pain in the groin folds and perineal region. No evidence of active cellulitis. -keep areas dry as possible -nystatin powder to the affected areas 4 times daily TYPE 2 DIABETES MELLITUS, insulin-dependent - history of recent and long-term poor control, most recent hemoglobin A1c obtained at the clinic was elevated at greater than 10. Patient has poor insight about good food choices as well as the importance of good diabetes management. -continue usual dose of short and long acting insulin -moderate dose sliding scale NovoLog -4 times a day glucometers -Dietary consult MAINTENANCE ISSUES -DVT prophylaxis; enoxaparin 40 mg subcutaneous daily -GI prophylaxis; PPI -Watts catheter; not indicated -Nutrition;Consistent carb diet ADMISSION STATUS - the patient will be transitioned to inpatient status for management of acute cystitis complicated by sepsis syndrome and generalized weakness. DISPOSITION - anticipate discharge to home with home care after the hospital stay. Alphonso Scott MD
[2018-02-26] MEDS: oxyCODONE 5 MG Tab PO PRN (15:38)
[2018-02-26] MEDS ORDERED: Latanoprost 0.005% Ophth Soln 2.5 ML Bottle EYEBOTH SCH (21:00)
[2018-02-26] MEDS: Latanoprost 0.005% Ophth Soln 2.5 ML Bottle EYEBOTH SCH (21:47)
[2018-02-26] MEDS: Docusate Sodium 100 MG Cap PO PRN (21:54)
[2018-02-27] MEDS: Aztreonam/Dextrose-Water 1 GM in Premix Bag 1 BAG IV SCH ×2 (02:43→09:40)
[2018-02-27] MEDS: Diclofenac Sodium 1% Gel 100 GM Tube TOP SCH ×4 (06:17→21:21)
[2018-02-27] MEDS: Nystatin Topical Powder 15 GM Bottle TOP SCH ×4 (06:18→21:15)
[2018-02-27] MEDS: Insulin Aspart 100 Units/ML 3 ML Pen SUBCUT SCH ×7 (08:35→21:15)
[2018-02-27] MEDS: Carvedilol 6.25 MG Tab PO SCH ×2 (08:36→17:44)
[2018-02-27] MEDS: Aspirin 81 MG Tab.EC PO SCH (08:39)
[2018-02-27] MEDS: Potassium Chloride 20 MEQ Tab.ER PO SCH (08:40)
[2018-02-27] MEDS: Furosemide 40 MG Tab PO SCH (08:40)
[2018-02-27] MEDS: buPROPion 150 MG Tab.ER PO SCH (08:41)
[2018-02-27] MEDS: Insulin Detemir 100 Units/ML 3 ML Pen SUBCUT SCH ×2 (08:41→21:16)
[2018-02-27] MEDS: Enoxaparin 40 MG/0.4 ML Syringe SUBCUT SCH (09:40)
[2018-02-27] MEDS: oxyCODONE 5 MG Tab PO PRN (10:09)
--- NOTE | 2018-02-27 11:45 | PCM.PN ---
- General Info Date of Service: 02/27/18 Functional Status: Reports: Pain Controlled, Tolerating Diet - Review of Systems General: Denies: Fever Musculoskeletal: Reports: Leg Pain Systems Review Comment:: No acute events overnight. Still having some right hip pain but it's a little better today. Blood sugar control has been improving. She has not had any fevers. Blood pressures have been stable. She is a little lightheaded with activity. Urine culture is growing mixed positive jose. - Patient Data Vitals - Most Recent: Last Vital Signs Temp 36.7 C 02/27/18 11:00 Pulse 82 02/27/18 11:00 Resp 18 02/27/18 11:00 BP 142/63 H 02/27/18 11:00 Pulse Ox 94 L 02/27/18 11:00 Weight - Most Recent: 127.913 kg I&O - Last 24 Hours: Intake & Output 02/26/18 02/27/18 02/27/18 22:59 06:59 14:59 Intake Total 1948 1055 360 Output Total 900 200 600 Balance 1048 855 -240 Lab Results Last 24 Hours: Laboratory Results - last 24 hr 02/27/18 02/27/18 Range/Units 05:58 05:58 WBC 11.0 (4.5-11.0) K/uL RBC 4.29 (3.30-5.50) M/uL Hgb 13.7 (12.0-15.0) g/dL Hct 40.8 (36.0-48.0) % MCV 95 (80-98) fL MCH 32 H (27-31) pg MCHC 34 (32-36) % Plt Count 282 (150-400) K/uL Sodium 141 (140-148) mmol/L Potassium 3.9 (3.6-5.2) mmol/L Chloride 104 (100-108) mmol/L Carbon Dioxide 28 (21-32) mmol/L Anion Gap 8.9 (5.0-14.0) mmol/L BUN 15 (7-18) mg/dL Creatinine 0.8 (0.6-1.0) mg/dL Est Cr Clr Drug Dosing 62.14 mL/min Estimated GFR (MDRD) > 60 (>60) Glucose 174 H (74-106) mg/dL Calcium 8.4 L (8.5-10.1) mg/dL Ben Results Last 24 Hours: Microbiology 02/26/18 00:33 Urine Culture - Preliminary Urine, Bladder MIXED POSITIVE JOSE DAY 1 02/26/18 00:44 Aerobic Blood Culture - Preliminary Blood - Venous NO GROWTH AFTER 1 DAY Anaerobic Blood Culture - Preliminary NO GROWTH AFTER 1 DAY 02/26/18 00:32 Aerobic Blood Culture - Preliminary Blood - Venous - Lab Draw NO GROWTH AFTER 1 DAY Anaerobic Blood Culture - Preliminary NO GROWTH AFTER 1 DAY Med Orders - Current: Current Medications Acetaminophen (Tylenol) 650 mg PO Q4H PRN PRN Reason: Pain (Mild 1-3)/fever Last Admin: 02/26/18 10:54 Dose: 650 mg Albuterol (Proventil Neb Soln) 2.5 mg NEB Q4H PRN PRN Reason: Dyspnea/wheezing Albuterol/Ipratropium (Duoneb 3.0-0.5 Mg/3 Ml) 3 ml INH Q4H PRN PRN Reason: SHORTNESS OF BREATH Aspirin (Halfprin) 81 mg PO DAILY [facility] Last Admin: 02/27/18 08:39 Dose: 81 mg Azathioprine (Imuran) 50 mg PO TIDPC [facility] Last Admin: 02/27/18 08:40 Dose: 50 mg Bupropion HCl (Wellbutrin Xl) 300 mg PO DAILY [facility] Last Admin: 02/27/18 08:41 Dose: 300 mg Carvedilol (Coreg) 6.25 mg PO BIDMEALS [facility] Last Admin: 02/27/18 08:36 Dose: 6.25 mg Diclofenac Sodium (Voltaren 1% Gel) 0 gm TOP QID [facility] Last Admin: 02/27/18 09:41 Dose: 1 applic Docusate Sodium (Colace) 100 mg PO BID PRN PRN Reason: Constipation Last Admin: 02/26/18 21:54 Dose: 100 mg Enoxaparin Sodium (Lovenox) 40 mg SUBCUT Q24H [facility] Last Admin: 02/27/18 09:40 Dose: 40 mg Furosemide (Lasix) 40 mg PO DAILY [facility] Last Admin: 02/27/18 08:40 Dose: 40 mg Hydroxyzine HCl (Atarax) 25 mg PO TID PRN PRN Reason: Itching Insulin Aspart (Novolog) 0 unit SUBCUT QIDACANDBED [facility]; Protocol Last Admin: 02/27/18 08:35 Dose: Not Given Insulin Aspart (Novolog) 10 unit SUBCUT TIDMEALS [facility] Last Admin: 02/27/18 08:38 Dose: 10 units Insulin Detemir (Levemir) 55 unit SUBCUT BID [facility] Last Admin: 02/27/18 08:41 Dose: 55 units Latanoprost (Xalatan 0.005% Ophth Soln) 0 ml EYEBOTH BEDTIME [facility] Last Admin: 02/26/18 21:47 Dose: 1 drop Lorazepam (Ativan) 1 mg IV Q6H PRN PRN Reason: Nausea/Vomiting Metronidazole (Metronidazole 0.75% Gel) 0 gm TOP DAILY [facility] Last Admin: 02/27/18 09:40 Dose: 1 applic Mometasone Furoate/Formoterol Fumar (Dulera 100-5 Mcg) 2 puff IH BIDRT PRN PRN Reason: shortness of breath Nystatin (Nystop) 0 gm TOP QID [facility] Last Admin: 02/27/18 09:40 Dose: 1 applic Ondansetron HCl (Zofran Odt) 4 mg PO Q6H PRN PRN Reason: Nausea able to take PO Ondansetron HCl (Zofran) 4 mg IV Q4H PRN PRN Reason: Nausea/Vomiting Oxycodone HCl (Oxycodone) 5 - 10 mg PO Q4H PRN PRN Reason: Pain (moderate 4-6) Last Admin: 02/27/18 10:09 Dose: 5 mg Potassium Chloride (Klor-Con M20) 20 meq PO DAILY [facility] Last Admin: 02/27/18 08:40 Dose: 20 meq Zolpidem Tartrate (Ambien) 5 mg PO BEDTIME PRN PRN Reason: Sleep Last Admin: 02/26/18 23:44 Dose: 5 mg Discontinued Medications Albuterol (Proventil Neb Soln) 2.5 mg NEB Q4H PRN PRN Reason: Shortness Of Breath/wheezing Sodium Chloride (Normal Saline) 1,000 mls @ 999 mls/hr IV ASDIRECTED [facility] Last Admin: 02/26/18 00:36 Dose: 999 mls/hr Sodium Chloride (Normal Saline) 1,000 mls @ 999 mls/hr IV ASDIRECTED [facility] Last Admin: 02/26/18 01:46 Dose: 999 mls/hr Aztreonam 1 gm/ Sodium (Chloride) 50 mls @ 100 mls/hr IV ONETIME ONE Stop: 02/26/18 01:57 Last Admin: 02/26/18 01:43 Dose: 100 mls/hr Clindamycin Phosphate 300 mg/ (Sodium Chloride) 52 mls @ 150 mls/hr IV Q6H [facility] Last Admin: 02/27/18 08:44 Dose: 150 mls/hr Sodium Chloride (Normal Saline) 1,000 mls @ 125 mls/hr IV ASDIRECTED [facility] Last Admin: 02/26/18 03:40 Dose: 125 mls/hr Aztreonam/Dextrose 1 gm/ (Premix) 50 mls @ 100 mls/hr IV Q8H [facility] Last Admin: 02/27/18 09:40 Dose: 100 mls/hr Sodium Chloride (Normal Saline) 1,000 mls @ 50 mls/hr IV ASDIRECTED [facility] Last Admin: 02/26/18 12:56 Dose: 50 mls/hr Insulin Aspart (Novolog) 12 unit SUBCUT TIDMEALS [facility] Last Admin: 02/26/18 09:02 Dose: Not Given Insulin Human Regular (Novolin R) 5 unit SUBCUT ONETIME ONE; Protocol Stop: 02/26/18 00:34 Last Admin: 02/26/18 00:40 Dose: 5 unit Morphine Sulfate (Morphine) 2 mg IVPUSH Q2H PRN PRN Reason: Pain (severe 7-10) Non-Formulary Medication (Bupropion [Wellbutrin Xl]) 300 mg PO DAILY [facility] Oxycodone HCl (Oxycodone) 5 mg PO Q4H PRN PRN Reason: Pain (moderate 4-6) Last Admin: 02/26/18 07:46 Dose: 5 mg - Exam Quality Assessment: No: Supplemental Oxygen General: Alert, Oriented, Cooperative, No Acute Distress Neck: Supple Lungs: Normal Respiratory Effort GI/Abdominal Exam: Soft, No Distention Extremities: No Pedal Edema, Other (mild bruising around left 5th toe) Skin: Warm, Dry Psy/Mental Status: Alert, Normal Affect - Problem List Review Problem List Initiated/Reviewed/Updated: Yes - My Orders Last 24 Hours: My Active Orders 02/26/18 10:45 oxyCODONE 5 - 10 mg PO Q4H PRN 02/26/18 12:15 Sodium Chloride 0.9% [Normal Saline] 1,000 ml IV ASDIRECTED 02/27/18 11:43 Convert IV to Saline Lock [OM.PC] Routine 02/27/18 16:30 GLUCOSE POC LAB TO COLLECT [POC] QIDACANDBED 02/27/18 21:00 GLUCOSE POC LAB TO COLLECT [POC] QIDACANDBED Doxycycline [Vibramycin] 100 mg PO BID 02/28/18 05:00 BASIC METABOLIC PANEL,BMP [CHEM] Timed CBC W/O DIFF,HEMOGRAM [HEME] Timed (1) - Plan Plan:: ASSESSMENT AND PLAN URINARY TRACT INFECTION with sepsis - failed a recent course of outpatient antibiotic therapy. Multiple allergies makes choosing antibiotics more difficult. Sepsis has resolved. Urine culture growing mixed positive jose, similar to previous culture. Mycoplasma could be considered. -Follow-up urine culture -Saline lock IV -Trial of doxycycline -Physical therapy for strengthening YEAST DERMATITIS - significant improvement over the past week but not yet resolved.-keep areas dry as possible -nystatin powder to the affected areas 4 times daily TYPE 2 DIABETES MELLITUS, insulin-dependent - control improving during the hospital stay. -continue usual dose of short and long acting insulin -moderate dose sliding scale NovoLog -4 times a day glucometers -Dietary consult MAINTENANCE ISSUES -DVT prophylaxis; enoxaparin 40 mg subcutaneous daily -GI prophylaxis; PPI -Watts catheter; not indicated -Nutrition; Consistent carb diet DISPOSITION - anticipate discharge to home with home care after the hospital stay, hopefully in the next day or 2. Alphonso Scott MD
[2018-02-27] MEDS: Docusate Sodium 100 MG Cap PO PRN (16:12)
[2018-02-27] MEDS: Doxycycline 100 MG Cap PO SCH (21:14)
[2018-02-27] MEDS: Zolpidem 5 MG Tab PO PRN (21:14)
[2018-02-27] MEDS: Latanoprost 0.005% Ophth Soln 2.5 ML Bottle EYEBOTH SCH (21:15)
[2018-02-28] MEDS: Diclofenac Sodium 1% Gel 100 GM Tube TOP SCH ×2 (05:00→10:28)
[2018-02-28] MEDS: Nystatin Topical Powder 15 GM Bottle TOP SCH ×2 (05:25→10:27)
[2018-02-28] MEDS: Insulin Aspart 100 Units/ML 3 ML Pen SUBCUT SCH ×2 (07:44→07:46)
[2018-02-28] MEDS: Carvedilol 6.25 MG Tab PO SCH (07:47)
[2018-02-28] MEDS: Potassium Chloride 20 MEQ Tab.ER PO SCH (08:52)
[2018-02-28] MEDS: Aspirin 81 MG Tab.EC PO SCH (08:52)
[2018-02-28] MEDS: Doxycycline 100 MG Cap PO SCH (08:53)
[2018-02-28] MEDS: buPROPion 150 MG Tab.ER PO SCH (08:53)
[2018-02-28] MEDS: Furosemide 40 MG Tab PO SCH (08:53)
[2018-02-28] MEDS: Insulin Detemir 100 Units/ML 3 ML Pen SUBCUT SCH (08:55)
[2018-02-28] MEDS: Enoxaparin 40 MG/0.4 ML Syringe SUBCUT SCH (10:27)
--- NOTE | 2018-02-28 10:43 | PCM.DCSUM1 ---
Discharge Summary - Hospital Course Brief History: 67-year-old female with history of insulin-dependent diabetes, obesity with a BMI greater than 40 and recent severe yeast dermatitis who presented to the emergency room with weakness, hyperglycemia. She was admitted for management of a urinary tract infection and sepsis. - Discharge Data Discharge Date: 02/28/18 Discharge Disposition: Home, [facility] 06 Condition: Good - Discharge Diagnosis/Problem(s) (1) UTI (urinary tract infection) SNOMED Code(s): 44932419 ICD Code: N39.0 - URINARY TRACT INFECTION, SITE NOT SPECIFIED Status: Acute Priority: High Qualifiers: Encounter type: initial encounter (2) Sepsis SNOMED Code(s): 74485098 ICD Code: A41.9 - SEPSIS, UNSPECIFIED ORGANISM Status: Acute Qualifiers: Sepsis type: sepsis due to unspecified organism Qualified Code(s): A41.9 - Sepsis, unspecified organism (3) Yeast infection SNOMED Code(s): 7430201 ICD Code: B37.9 - CANDIDIASIS, UNSPECIFIED Status: Acute Priority: High (4) Diabetes mellitus SNOMED Code(s): 25818031 ICD Code: E11.9 - TYPE 2 DIABETES MELLITUS WITHOUT COMPLICATIONS Status: Chronic Priority: Medium Qualifiers: Diabetes mellitus type: type 2 Diabetes mellitus [facility] insulin use: with shop assistant use Diabetes mellitus complication status: with skin complications Diabetes mellitus complication detail: with dermatitis Qualified Code(s): E11.620 - Type 2 diabetes mellitus with diabetic dermatitis; Z79.4 - hansard reporter (current) use of insulin (5) DESHAWN on CPAP SNOMED Code(s): 49630963 ICD Code: G47.33 - OBSTRUCTIVE SLEEP APNEA (ADULT) (PEDIATRIC); Z99.89 - DEPENDENCE ON OTHER ENABLING MACHINES AND DEVICES Status: Chronic (6) Morbid obesity with BMI of 45.0-49.9, adult SNOMED Code(s): 951394837 ICD Code: E66.01 - MORBID (SEVERE) OBESITY DUE TO EXCESS CALORIES; Z68.42 - BODY MASS INDEX (BMI) 45.0-49.9, ADULT Status: Chronic - Patient Summary/Data Consults: Consultations 02/26/18 02:44 OT Evaluation and Treatment [CONS] Routine Please Evaluate and Treat. OT Reason for Consult: Discharge Planning Pending Discharge: Strengthening This query below is only for informational purposes and is not editable. PT Evaluation and Treatment [CONS] Routine Please Evaluate and Treat. PT Reason for Consult: Strengthening This query below is only for informational purposes and is not editable. Hospital Course: Justa presented to the emergency room with right hip pain after a fall at home. She had been weak and was unable to get off of the floor on her own. Workup in the emergency room was suggestive of a urinary tract infection and sepsis. She received broad-spectrum antibiotics and IV fluids and was admitted to the hospital for further management. With the IV fluids her lactic acid level did normalize. Abnormal vital signs suggestive of sepsis all improved and normalized. Clinically she made some improvement overnight with additional improvement over the next few days. Right hip pain did persist during the hospital stay but improved significantly. There is no evidence for fracture on imaging. Blood sugars which were initially noted to be quite high improved with aggressive insulin management and have stabilized. Her urine culture grew out mixed positive jose but no specific pathogen. Blood cultures have been negative. This was similar to her previous urine culture. I elected transition her to doxycycline with the possibility that she may be infected with mycoplasma. She has tolerated this antibiotic well. She has not had any fevers and has shown steady improvement in strength and symptoms. Her blood sugars have been well-controlled over the past 24-48 hours. Vital signs have all been stable. She's made good improvement in her strength with physical therapy. I believe she is safe for outpatient management at this time. She will need for additional days of antibiotic therapy with doxycycline. She would benefit from early clinic follow-up with the diabetic educators for discussion about good food choices with diabetes. No other medication adjustments were made. She will resume her previous home health care orders. - Patient Instructions Diet: Diabetic Diet Activity: As Tolerated Showering/Bathing: May Shower Notify Provider of: Fever, Increased Pain, Nausea and/or Vomiting Other/Special Instructions: 1. You were in the hospital for management of a urinary tract infection complicated by sepsis syndrome. Your urine and blood cultures did not grow out a specific bacteria but you have been improving with our current antibiotic therapy. I recommend that you take doxycycline 100 mg twice daily for 8 more doses. This antibiotic will help to clear the remainder of the infection out of your bladder. Your next dose is due tonight. You should take this medication with food to avoid stomach upset. 2. At the time of admission your diabetes was poorly controlled but we have achieved better blood sugar control during the hospital stay. We have provided some information about good food choices with diabetes and I would encourage you to try to follow the diabetic diet closely. If you have additional questions diabetic educators are available with a referral from your primary care physician. 3. Continue your home medications as previously prescribed. 4. Resume your recently prescribed home care orders. 5. Seek medical attention if you have fever greater than 101 , if you develop persistent vomiting or severe diarrhea or if you have acute abdominal pain. - Discharge Plan Prescriptions/Med Rec: Doxycycline Hyclate 100 mg PO BID #8 capsule Home Medications: Home Meds Aspirin [Adult Low Dose Aspirin EC] 81 mg PO DAILY 03/20/14 [History] Budesonide/Formoterol [Symbicort 80-4.5 MCG] 2 puff INH BID PRN 03/20/14 [ History] Furosemide [Lasix] 40 mg PO DAILY 03/20/14 [History] Insulin Aspart [Novolog Flexpen] 12 units SUBCUT TIDMEALS 03/20/14 [History] Omeprazole 40 mg PO DAILY 03/20/14 [History] Oxybutynin Chloride [Ditropan Xl] 10 mg PO DAILY 03/20/14 [History] Simvastatin [Zocor] 20 mg PO BEDTIME 03/20/14 [History] hydrOXYzine Pamoate [Vistaril] 25 mg PO TID PRN 03/20/14 [History] traZODone 200 mg PO BEDTIME 03/20/14 [History] Albuterol/Ipratropium [Combivent] 1 puff INH Q4HR PRN 08/27/14 [History] azaTHIOprine [Azathioprine] 50 mg PO TID 08/27/14 [History] buPROPion [Wellbutrin XL] 300 mg PO DAILY 08/27/14 [History] Insulin Degludec [Tresiba Flextouch U-200] 110 units SQ DAILY 08/28/16 [History] Prasugrel HCl [Effient] 10 mg PO DAILY 11/16/16 [History] Albuterol [Proventil Neb Soln] 3 ml NEB Q4H PRN 04/03/17 [History] Carvedilol [Coreg] 6.25 mg PO BID 04/03/17 [History] Diclofenac Sodium [Voltaren 1% Gel] 4 gm TOP QID 04/03/17 [History] Latanoprost [Xalatan 0.005% Ophth Soln] 1 drop EYEBOTH BEDTIME 04/03/17 [History ] Methyl Salicylate/Menthol [Icy Hot Stick] 1 applic TOP QID PRN 04/03/17 [History ] Mupirocin Oint [Bactroban Oint] 1 applic TOP TID 04/03/17 [History] Potassium Chloride 20 meq PO DAILY 04/03/17 [History] SUMAtriptan [Imitrex] 50 mg PO ASDIRECTED PRN 04/03/17 [History] Salsalate 500 mg PO BID PRN 04/03/17 [History] metroNIDAZOLE [Metrogel] 1 applic TOP DAILY 04/03/17 [History] Nystatin 60 gm TP QID #60 gm 02/20/18 [Rx] Prasugrel HCl [Effient] 1 tab PO DAILY 02/26/18 [History] buPROPion HCl [Wellbutrin Xl] 300 mg PO DAILY 02/26/18 [History] Doxycycline Hyclate 100 mg PO BID #8 capsule 02/28/18 [Rx] Patient Handouts: Urinary Tract Infection, Adult, [id number], Doxycycline tablets or capsules, Diabetes Mellitus and Food Referrals: Danilo Alexander MD [Primary Care Provider] - 03/07/18 1:00 pm - Discharge Summary/Plan Comment DC Time >30 min.: No (25) - Patient Data Vitals - Most Recent: Last Vital Signs Temp 35.8 C 02/28/18 07:00 Pulse 88 02/28/18 07:47 Resp 18 02/28/18 07:00 BP 155/62 H 02/28/18 07:47 Pulse Ox 94 L 02/28/18 07:00 Weight - Most Recent: 127.913 kg I&O - Last 24 hours: Intake & Output 02/27/18 02/28/18 02/28/18 22:59 06:59 14:59 Intake Total 240 440 Output Total 850 700 Balance -610 -260 Lab Results - Last 24 hrs: Laboratory Results - last 24 hr 02/28/18 02/28/18 Range/Units 04:50 04:50 WBC 10.5 (4.5-11.0) K/uL RBC 4.25 (3.30-5.50) M/uL Hgb 13.3 (12.0-15.0) g/dL Hct 40.5 (36.0-48.0) % MCV 95 (80-98) fL MCH 31 (27-31) pg MCHC 33 (32-36) % Plt Count 261 (150-400) K/uL Sodium 141 (140-148) mmol/L Potassium 3.7 (3.6-5.2) mmol/L Chloride 104 (100-108) mmol/L Carbon Dioxide 28 (21-32) mmol/L Anion Gap 8.7 (5.0-14.0) mmol/L BUN 12 (7-18) mg/dL Creatinine 0.8 (0.6-1.0) mg/dL Est Cr Clr Drug Dosing 62.14 mL/min Estimated GFR (MDRD) > 60 (>60) Glucose 157 H (74-106) mg/dL Calcium 8.8 (8.5-10.1) mg/dL HIRAM Results - Last 24 hrs: Microbiology 02/26/18 00:33 Urine Culture - Final Urine, Bladder MIXED POSITIVE JOSE DAY 2 02/26/18 00:44 Aerobic Blood Culture - Preliminary Blood - Venous NO GROWTH AFTER 2 DAYS Anaerobic Blood Culture - Preliminary NO GROWTH AFTER 2 DAYS 02/26/18 00:32 Aerobic Blood Culture - Preliminary Blood - Venous - Lab Draw NO GROWTH AFTER 2 DAYS Anaerobic Blood Culture - Preliminary NO GROWTH AFTER 2 DAYS Med Orders - Current: Current Medications Acetaminophen (Tylenol) 650 mg PO Q4H PRN PRN Reason: Pain (Mild 1-3)/fever Last Admin: 02/26/18 10:54 Dose: 650 mg Albuterol (Proventil Neb Soln) 2.5 mg NEB Q4H PRN PRN Reason: Dyspnea/wheezing Albuterol/Ipratropium (Duoneb 3.0-0.5 Mg/3 Ml) 3 ml INH Q4H PRN PRN Reason: SHORTNESS OF BREATH Aspirin (Halfprin) 81 mg PO DAILY [facility] Last Admin: 02/28/18 08:52 Dose: 81 mg Azathioprine (Imuran) 50 mg PO TIDPC [facility] Last Admin: 02/28/18 08:56 Dose: 50 mg Bupropion HCl (Wellbutrin Xl) 300 mg PO DAILY [facility] Last Admin: 02/28/18 08:53 Dose: 300 mg Carvedilol (Coreg) 6.25 mg PO BIDMEALS [facility] Last Admin: 02/28/18 07:47 Dose: 6.25 mg Diclofenac Sodium (Voltaren 1% Gel) 0 gm TOP QID [facility] Last Admin: 02/28/18 10:28 Dose: 1 applic Docusate Sodium (Colace) 100 mg PO BID PRN PRN Reason: Constipation Last Admin: 02/27/18 16:12 Dose: 100 mg Doxycycline Hyclate (Vibramycin) 100 mg PO BID [facility] Last Admin: 02/28/18 08:53 Dose: 100 mg Enoxaparin Sodium (Lovenox) 40 mg SUBCUT Q24H [facility] Last Admin: 02/28/18 10:27 Dose: 40 mg Furosemide (Lasix) 40 mg PO DAILY [facility] Last Admin: 02/28/18 08:53 Dose: 40 mg Hydroxyzine HCl (Atarax) 25 mg PO TID PRN PRN Reason: Itching Insulin Aspart (Novolog) 0 unit SUBCUT QIDACANDBED [facility]; Protocol Last Admin: 02/28/18 07:44 Dose: 2 units Insulin Aspart (Novolog) 12 unit SUBCUT TIDMEALS [facility] Insulin Detemir (Levemir) 55 unit SUBCUT BID [facility] Last Admin: 02/28/18 08:55 Dose: 55 units Latanoprost (Xalatan 0.005% Ophth Soln) 0 ml EYEBOTH BEDTIME [facility] Last Admin: 02/27/18 21:15 Dose: 1 drop Lorazepam (Ativan) 1 mg IV Q6H PRN PRN Reason: Nausea/Vomiting Metronidazole (Metronidazole 0.75% Gel) 0 gm TOP DAILY [facility] Last Admin: 02/28/18 08:54 Dose: Not Given Mometasone Furoate/Formoterol Fumar (Dulera 100-5 Mcg) 2 puff IH BIDRT PRN PRN Reason: shortness of breath Nystatin (Nystop) 0 gm TOP QID [facility] Last Admin: 02/28/18 10:27 Dose: 1 applic Ondansetron HCl (Zofran Odt) 4 mg PO Q6H PRN PRN Reason: Nausea able to take PO Ondansetron HCl (Zofran) 4 mg IV Q4H PRN PRN Reason: Nausea/Vomiting Oxycodone HCl (Oxycodone) 5 - 10 mg PO Q4H PRN PRN Reason: Pain (moderate 4-6) Last Admin: 02/27/18 10:09 Dose: 5 mg Potassium Chloride (Klor-Con M20) 20 meq PO DAILY [facility] Last Admin: 02/28/18 08:52 Dose: 20 meq Zolpidem Tartrate (Ambien) 5 mg PO BEDTIME PRN PRN Reason: Sleep Last Admin: 02/27/18 21:14 Dose: 5 mg Discontinued Medications Albuterol (Proventil Neb Soln) 2.5 mg NEB Q4H PRN PRN Reason: Shortness Of Breath/wheezing Sodium Chloride (Normal Saline) 1,000 mls @ 999 mls/hr IV ASDIRECTED [facility] Last Admin: 02/26/18 00:36 Dose: 999 mls/hr Sodium Chloride (Normal Saline) 1,000 mls @ 999 mls/hr IV ASDIRECTED [facility] Last Admin: 02/26/18 01:46 Dose: 999 mls/hr Aztreonam 1 gm/ Sodium (Chloride) 50 mls @ 100 mls/hr IV ONETIME ONE Stop: 02/26/18 01:57 Last Admin: 02/26/18 01:43 Dose: 100 mls/hr Clindamycin Phosphate 300 mg/ (Sodium Chloride) 52 mls @ 150 mls/hr IV Q6H [facility] Last Admin: 02/27/18 08:44 Dose: 150 mls/hr Sodium Chloride (Normal Saline) 1,000 mls @ 125 mls/hr IV ASDIRECTED [facility] Last Admin: 02/26/18 03:40 Dose: 125 mls/hr Aztreonam/Dextrose 1 gm/ (Premix) 50 mls @ 100 mls/hr IV Q8H [facility] Last Admin: 02/27/18 09:40 Dose: 100 mls/hr Sodium Chloride (Normal Saline) 1,000 mls @ 50 mls/hr IV ASDIRECTED [facility] Last Admin: 02/26/18 12:56 Dose: 50 mls/hr Insulin Aspart (Novolog) 10 unit SUBCUT TIDMEALS [facility] Last Admin: 02/28/18 07:46 Dose: 10 units Insulin Aspart (Novolog) 12 unit SUBCUT TIDMEALS [facility] Last Admin: 02/26/18 09:02 Dose: Not Given Insulin Human Regular (Novolin R) 5 unit SUBCUT ONETIME ONE; Protocol Stop: 02/26/18 00:34 Last Admin: 02/26/18 00:40 Dose: 5 unit Morphine Sulfate (Morphine) 2 mg IVPUSH Q2H PRN PRN Reason: Pain (severe 7-10) Non-Formulary Medication (Bupropion [Wellbutrin Xl]) 300 mg PO DAILY [facility] Oxycodone HCl (Oxycodone) 5 mg PO Q4H PRN PRN Reason: Pain (moderate 4-6) Last Admin: 02/26/18 07:46 Dose: 5 mg - Exam Quality Assessment: Denies: Supplemental Oxygen General: Reports: Alert, Oriented, Cooperative, No Acute Distress Neck: Reports: Supple Lungs: Reports: Normal Respiratory Effort GI/Abdominal Exam: Soft, No Distention Extremities: No Pedal Edema Psy/Mental Status: Reports: Alert, Normal Affect
[2018-02-28 10:46] VITALS: BP 146/76
[2018-02-28] MEDS ORDERED: Insulin Aspart 100 Units/ML 3 ML Pen SUBCUT SCH (12:00)
== END 2018-02-28 11:35 | disposition home health service (06) | DRG 872 ==
LOC: JP.ED 23:07 → JP.MS 02-26 02:05 → OBSVTOIN 02-26 09:32
PROVIDERS: ADMIT Internal Medicine; ATTEND Internal Medicine
DX: A41.9 Sepsis, unspecified organism (principal); N39.0 Urinary tract infection, site not specified; B37.9 Candidiasis, unspecified; N30.00 Acute cystitis without hematuria; Z68.42 Body mass index [BMI] 45.0-49.9, adult; B37.49 Other urogenital candidiasis; S70.01XA Contusion of right hip, initial encounter; W18.30XA Fall on same level, unspecified, initial encounter; H91.90 Unspecified hearing loss, unspecified ear; H54.7 Unspecified visual loss; I25.10 Atherosclerotic heart disease of native coronary artery without angina pectoris; E11.9 Type 2 diabetes mellitus without complications; E66.9 Obesity, unspecified; E78.00 Pure hypercholesterolemia, unspecified; I10 Essential (primary) hypertension; G47.30 Sleep apnea, unspecified; F32.9 Major depressive disorder, single episode, unspecified; J44.9 Chronic obstructive pulmonary disease, unspecified; K21.9 Gastro-esophageal reflux disease without esophagitis; R32 Unspecified urinary incontinence; M19.90 Unspecified osteoarthritis, unspecified site; G89.29 Other chronic pain; M54.9 Dorsalgia, unspecified; G43.909 Migraine, unspecified, not intractable, without status migrainosus; M25.551 Pain in right hip; J45.909 Unspecified asthma, uncomplicated; F17.200 Nicotine dependence, unspecified, uncomplicated; Z88.0 Allergy status to penicillin; I25.2 Old myocardial infarction; Z88.8 Allergy status to other drugs, medicaments and biological substances; Z91.040 Latex allergy status; Z95.5 Presence of coronary angioplasty implant and graft; Z90.49 Acquired absence of other specified parts of digestive tract; Z90.710 Acquired absence of both cervix and uterus; Z79.82 Long term (current) use of aspirin; Z79.4 Long term (current) use of insulin; Z79.899 Other long term (current) drug therapy; R53.1 Weakness; R53.81 Other malaise; B37.2 Candidiasis of skin and nail; L30.9 Dermatitis, unspecified; E11.65 Type 2 diabetes mellitus with hyperglycemia; G47.33 Obstructive sleep apnea (adult) (pediatric); Z99.89 Dependence on other enabling machines and devices; E66.01 Morbid (severe) obesity due to excess calories
CPT/HCPCS: 36415 ×2; 71045 ×2; 73502 ×2; 80048; 80053; 81001; 82962; 83605 ×2; 83880; 85025; 86140; 87040 ×2; 87086; 93005; 96361; 96365; 96367; 96375; 99284; A9270 ×8; J7040 ×3; J7050 ×3; 85027; 97116-GP; 97162-GP; 97165-GO; 97530-GP; J1650; J3490; J7500; S0073; S0077

== ENCOUNTER 2019-01-21 11:36 | Emergency (ER) | payer MEDICARE, OTHER ==
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
[2019-01-21 12:08] VITALS: BP 174/79
[2019-01-21] MEDS ORDERED: Bacitracin Oint 1 GM U/D Packet TOP ONE (12:10)
--- NOTE | 2019-01-21 12:49 | CRLCR ---
Indication: Injury and pain. Technique: Left knee 3 views Comparison: None Findings: Bones: Alignment is normal. No fractures or bone lesions. Joint spaces: No joint effusion. Joint spaces are well maintained. No degenerative changes. Soft tissues: Unremarkable. Impression: No sign of acute injury. Dictated by Olayinka Ruiz MD @ 01/21/2019 12:48:20 PM Dictated by: Olayinka Ruiz MD @ 01/21/2019 12:48:26 (Electronically Signed)
== END 2019-01-21 12:27 | disposition home or self-care (01) ==
LOC: JP.ED 11:36
DX: S80.02XA Contusion of left knee, initial encounter (principal); I25.10 Atherosclerotic heart disease of native coronary artery without angina pectoris; E78.00 Pure hypercholesterolemia, unspecified; I10 Essential (primary) hypertension; I25.2 Old myocardial infarction; Z95.5 Presence of coronary angioplasty implant and graft; J44.9 Chronic obstructive pulmonary disease, unspecified; K21.9 Gastro-esophageal reflux disease without esophagitis; E11.9 Type 2 diabetes mellitus without complications; F32.9 Major depressive disorder, single episode, unspecified; F17.210 Nicotine dependence, cigarettes, uncomplicated; Z79.899 Other long term (current) drug therapy; Z88.8 Allergy status to other drugs, medicaments and biological substances; Z79.4 Long term (current) use of insulin; Z79.82 Long term (current) use of aspirin; W17.89XA Other fall from one level to another, initial encounter; Y92.811 Bus as the place of occurrence of the external cause
CPT/HCPCS: 73562-LT; 99282; 99283-25

== ENCOUNTER 2019-03-21 08:14 | Emergency (ER) | payer MEDICARE, OTHER ==
[2019-03-21] MEDS ORDERED: Sodium Chloride 0.9% 10 ML Syringe FLUSH PRN (08:23)
--- NOTE | 2019-03-21 08:27 | EDM.PDOC ---
ED HPI GENERAL MEDICAL PROBLEM - General Stated Complaint: CHEST PAIN VIA [facility] Time Seen by Provider: 03/21/19 08:22 Source of Information: Reports: Patient, EMS, RN Notes Reviewed History Limitations: Reports: No Limitations - History of Present Illness INITIAL COMMENTS - FREE TEXT/NARRATIVE: 68-year-old female presents to emergency department today complaint of chest pain, she arrived by EMS which did provide aspirin and 1 nitroglycerin provided her some relief. She states the chest pain came on suddenly this morning at 8 AM describes it predominantly over the right side of her chest she does feel short of breath no nausea or diaphoresis. She states she still has chest pain rated 3 out of 10 does have a known history of coronary artery disease last myocardial infarction was 3 years ago with stenting 1 Left Chest Pain Score (Numeric/FACES): 4 - Related Data Allergies Allergy/AdvReac Type Severity Reaction Status Date / Time atenolol Allergy Abdominal Verified 04/05/17 07:44 Pain cephalexin Allergy Cannot Verified 04/05/17 07:44 Remember duloxetine HCl Allergy Cannot Verified 04/05/17 07:44 [From Cymbalta] Remember latex Allergy Cannot Verified 04/05/17 07:44 Remember lisinopril Allergy Cannot Verified 04/05/17 07:44 Remember Penicillins Allergy Cannot Verified 04/05/17 07:44 Remember silicone [Silicone] Allergy Cannot Verified 04/05/17 07:44 Remember pregabalin [From Lyrica] AdvReac Stomach Verified 04/05/17 07:44 Upset Home Meds: Home Meds Aspirin [Adult Low Dose Aspirin EC] 81 mg PO DAILY 03/20/14 [History] Budesonide/Formoterol [Symbicort 80-4.5 MCG] 2 puff INH BID PRN 03/20/14 [ History] Furosemide [Lasix] 40 mg PO DAILY 03/20/14 [History] Insulin Aspart [Novolog Flexpen] 12 units SUBCUT TIDMEALS 03/20/14 [History] Omeprazole 40 mg PO DAILY 03/20/14 [History] Oxybutynin Chloride [Ditropan Xl] 10 mg PO DAILY 03/20/14 [History] Simvastatin [Zocor] 20 mg PO BEDTIME 03/20/14 [History] hydrOXYzine pamoate [Vistaril] 25 mg PO TID PRN 03/20/14 [History] traZODone 200 mg PO BEDTIME 03/20/14 [History] Albuterol/Ipratropium [Combivent] 1 puff INH Q4HR PRN 08/27/14 [History] azaTHIOprine [Azathioprine] 50 mg PO TID 08/27/14 [History] buPROPion [Wellbutrin XL] 300 mg PO DAILY 08/27/14 [History] Insulin Degludec [Tresiba Flextouch U-200] 110 units SQ DAILY 08/28/16 [History] Prasugrel HCl [Effient] 10 mg PO DAILY 11/16/16 [History] Albuterol [Proventil Neb Soln] 3 ml NEB Q4H PRN 04/03/17 [History] Carvedilol [Coreg] 6.25 mg PO BID 04/03/17 [History] Methyl Salicylate/Menthol [Icy Hot Stick] 1 applic TOP QID PRN 04/03/17 [History ] Potassium Chloride 20 meq PO DAILY 04/03/17 [History] SUMAtriptan [Imitrex] 50 mg PO ASDIRECTED PRN 04/03/17 [History] Salsalate 500 mg PO BID PRN 04/03/17 [History] metroNIDAZOLE [Metrogel] 1 applic TOP DAILY 04/03/17 [History] Past Medical History HEENT History: Reports: Cataract, Hard of Hearing, Impaired Vision Cardiovascular History: Reports: CAD, High Cholesterol, Hypertension, [place], Stents Respiratory History: Reports: Asthma, COPD, Sleep Apnea Gastrointestinal History: Reports: Cholelithiasis, GERD Genitourinary History: Reports: Urinary Incontinence 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: , 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 Musculoskeletal History: Reports: Back Pain, Chronic, Fracture, Osteoarthritis Neurological History: Reports: Migraines Psychiatric History: Reports: Depression Endocrine/Metabolic History: Reports: Diabetes, Type II, Obesity/BMI 30+ Dermatologic History: Reports: Other (See Below) Other Dermatologic History: blisters - Infectious Disease History Infectious Disease History: Reports: Chicken Pox, Measles, Mumps - Past Surgical History HEENT Surgical History: Reports: Cataract Surgery Cardiovascular Surgical History: Reports: Coronary Artery Stent Respiratory Surgical History: Reports: None GI Surgical History: Reports: Appendectomy, Cholecystectomy Female Surgical History: Reports: Section, D&C, Hysterectomy, Salpingo-Oophorectomy Endocrine Surgical History: Reports: None Neurological Surgical History: Reports: None Musculoskeletal Surgical History: Reports: Arthroscopic Procedure, Carpal Tunnel , Other (See Below) Other Musculoskeletal Surgeries/Procedures:: ankle surgery on fx Dermatological Surgical History: Reports: None Social & Family History - Family History Family Medical History: Noncontributory - Caffeine Use Caffeine Use: Reports: Coffee, Soda Other Caffeine Use: 1 cup/day - Living Situation & Occupation Living situation: Reports: Single Occupation: Disabled ED ROS GENERAL - Review of Systems Review Of Systems: See Below Constitutional: Reports: No Symptoms HEENT: Reports: No Symptoms Respiratory: Reports: Shortness of Breath Cardiovascular: Reports: Chest Pain GI/Abdominal: Reports: No Symptoms : Reports: No Symptoms ED EXAM, GENERAL - Physical Exam Exam: See Below Exam Limited By: No Limitations General Appearance: Alert, WD/WN, No Apparent Distress Throat/Mouth: Normal Inspection, Normal Lips, Normal Teeth, Normal Gums, Normal Oropharynx, Normal Voice, No Airway Compromise Head: Atraumatic, Normocephalic Neck: Normal Inspection, Supple, Non-Tender, Full Range of Motion Respiratory/Chest: No Respiratory Distress, Lungs Clear, Normal Breath Sounds, No Accessory Muscle Use, Chest Non-Tender Cardiovascular: Regular Rate, Rhythm, No Murmur GI/Abdominal: Soft, Non-Tender Extremities: Normal Inspection, Non-Tender, Pedal Edema Course - Vital Signs Last Recorded V/S: Last Vital Signs Temp 97.7 F 03/21/19 08:14 Pulse 92 03/21/19 11:47 Resp 17 03/21/19 11:47 BP 154/63 H 03/21/19 11:47 Pulse Ox 94 L 03/21/19 11:47 - Orders/Labs/Meds Orders: Active Orders 24 hr Category Date Time Status Cardiac Monitoring [RC] .As Directed Care 03/21/19 08:23 Active EKG Documentation Completion [RC] ASDIRECTED Care 03/21/19 08:24 Active Peripheral IV Care [RC] . DIRECTED Care 03/21/19 08:24 Active Morphine Med 03/21/19 08:23 Active 4 mg IVPUSH Q10M PRN Nitroglycerin [Nitrostat] Med 03/21/19 08:23 Active 0.4 mg SL Q5M PRN Sodium Chloride 0.9% [Saline Flush] Med 03/21/19 08:23 Active 10 ml FLUSH ASDIRECTED PRN Peripheral IV Insertion Adult [OM.PC] Stat Oth 03/21/19 08:23 Ordered Saline Lock Insert [OM.PC] Stat Oth 03/21/19 08:23 Ordered EKG 12 Lead [EK] Stat Ther 03/21/19 08:24 Ordered Medication Orders Morphine Sulfate (Morphine) 4 mg IVPUSH Q10M PRN PRN Reason: Chest Pain Stop: 03/22/19 08:23 Last Admin: 03/21/19 10:01 Dose: 4 mg Nitroglycerin (Nitrostat) 0.4 mg SL Q5M PRN PRN Reason: Chest Pain Stop: 03/22/19 08:23 Last Admin: 03/21/19 09:19 Dose: 0.4 mg Sodium Chloride (Saline Flush) 10 ml FLUSH ASDIRECTED PRN PRN Reason: Keep Vein Open Labs: Laboratory Tests 03/21/19 03/21/19 03/21/19 Range/Units 08:30 08:30 11:30 WBC 9.2 (4.5-11.0) K/uL RBC 4.57 (3.30-5.50) M/uL Hgb 14.1 (12.0-15.0) g/dL Hct 43.4 (36.0-48.0) % MCV 95 (80-98) fL MCH 31 (27-31) pg MCHC 33 (32-36) % Plt Count 296 (150-400) K/uL Neut % (Auto) 68 H (36-66) % Lymph % (Auto) 20 L (24-44) % [place] % (Auto) 8 H (2-6) % Eos % (Auto) 3 (2-4) % Baso % (Auto) 1 (0-1) % Sodium 140 (140-148) mmol/L Potassium 4.0 (3.6-5.2) mmol/L Chloride 101 (100-108) mmol/L Carbon Dioxide 30 (21-32) mmol/L Anion Gap 8.7 (5.0-14.0) mmol/L BUN 8 (7-18) mg/dL Creatinine 0.8 (0.6-1.0) mg/dL Est Cr Clr Drug Dosing 61.40 mL/min Estimated GFR (MDRD) > 60 (>60) Glucose 275 H (74-106) mg/dL Calcium 9.2 (8.5-10.1) mg/dL Total Bilirubin 0.2 (0.2-1.0) mg/dL AST 27 (15-37) U/L ALT 31 (12-78) U/L Alkaline Phosphatase 149 H (46-116) U/L CK-MB (CK-2) 1.0 (0-3.6) mg/mL Troponin I < 0.017 < 0.017 (0.000-0.056) ng/mL Total Protein 6.7 (6.4-8.2) g/dL Albumin 2.4 L (3.4-5.0) g/dL Globulin 4.3 H (2.3-3.5) g/dL Albumin/Globulin Ratio 0.6 L (1.2-2.2) Meds: Medications Generic Name Dose Route Start Last Admin Trade Name Freq PRN Reason Stop Dose Admin Morphine Sulfate 4 mg 03/21/19 08:23 03/21/19 10:01 Morphine IVPUSH 03/22/19 08:23 4 mg Q10M PRN Administration Chest Pain Nitroglycerin 0.4 mg 03/21/19 08:23 03/21/19 09:19 Nitrostat SL 03/22/19 08:23 0.4 mg Q5M PRN Administration Chest Pain Sodium Chloride 10 ml 03/21/19 08:23 Saline Flush FLUSH ASDIRECTED PRN Keep Vein Open - Re-Assessments/Exams Free Text/Narrative Re-Assessment/Exam: 03/21/19 09:44 heart score is 5 Departure - Departure Time of Disposition: 12:51 Disposition: Home, Self-Care 01 Condition: Fair Clinical Impression: Atypical chest pain Referrals: PCP,None [Primary Care Provider] - Additional Instructions: Resume regular medications, Please followup with your primary care provider in 3-5 days if not better, please call return to the emergency department with worsening of symptoms. - My Orders Last 24 Hours: My Active Orders 03/21/19 08:23 Cardiac Monitoring [RC] .As Directed Morphine 4 mg IVPUSH Q10M PRN Nitroglycerin [Nitrostat] 0.4 mg SL Q5M PRN Sodium Chloride 0.9% [Saline Flush] 10 ml FLUSH ASDIRECTED PRN Peripheral IV Insertion Adult [OM.PC] Stat Saline Lock Insert [OM.PC] Stat 03/21/19 08:24 EKG Documentation Completion [RC] ASDIRECTED Peripheral IV Care [RC] . DIRECTED EKG 12 Lead [EK] Stat - Assessment/Plan Last 24 Hours: My Active Orders 03/21/19 08:23 Cardiac Monitoring [RC] .As Directed Morphine 4 mg IVPUSH Q10M PRN Nitroglycerin [Nitrostat] 0.4 mg SL Q5M PRN Sodium Chloride 0.9% [Saline Flush] 10 ml FLUSH ASDIRECTED PRN Peripheral IV Insertion Adult [OM.PC] Stat Saline Lock Insert [OM.PC] Stat 03/21/19 08:24 EKG Documentation Completion [RC] ASDIRECTED Peripheral IV Care [RC] . DIRECTED EKG 12 Lead [EK] Stat Plan: Assessment Acuity = acute Site and laterality = atypical chest pain Etiology = unclear etiology Manifestations = none Location of injury = Home Lab values = CBC, CMP unremarkable troponin negative 2 chest x-ray shows no acute process EKG shows no ST elevations or depressions Plan She remained asymptomatic in the emergency department plan is discharge home follow up primary care through 5 days if no improvement This note was dictated using [employer] voice recognition software please call with any questions on syntax or grammar.
--- NOTE | 2019-03-21 08:59 | CRLCR ---
HISTORY: Chest pain. TECHNIQUE: One view of the chest. COMPARISON: 02/26/2018. FINDINGS: The cardiac size and pulmonary vasculature are within normal limits. There is no consolidation or pulmonary edema. No pneumothorax or pleural effusion. Degenerative changes of the spine. IMPRESSION: No acute cardiopulmonary disease. Dictated by Geovany Bryant MD @ 03/21/2019 8:59:04 AM Dictated by: Geovany Bryant MD @ 03/21/2019 08:59:08 (Electronically Signed)
[2019-03-21] MEDS: Nitroglycerin 0.4 MG Tab.SL SL PRN (09:19)
[2019-03-21] MEDS: Morphine 4 MG/ML Syringe IVPUSH PRN (10:01)
[2019-03-21 12:00] VITALS: BP 154/63
== END 2019-03-21 13:00 | disposition home or self-care (01) ==
LOC: JP.ED 08:14
DX: R07.89 Other chest pain (principal); I25.10 Atherosclerotic heart disease of native coronary artery without angina pectoris; E78.00 Pure hypercholesterolemia, unspecified; I10 Essential (primary) hypertension; I25.2 Old myocardial infarction; J44.9 Chronic obstructive pulmonary disease, unspecified; K21.9 Gastro-esophageal reflux disease without esophagitis; E11.9 Type 2 diabetes mellitus without complications; Z88.8 Allergy status to other drugs, medicaments and biological substances; Z95.5 Presence of coronary angioplasty implant and graft; Z91.040 Latex allergy status; Z88.0 Allergy status to penicillin; Z79.899 Other long term (current) drug therapy; Z79.4 Long term (current) use of insulin
CPT/HCPCS: 36415; 71045; 80053; 82553; 84484; 85025; 93005; 96374; 99285; A9270; J2270

== ENCOUNTER 2019-05-23 16:00 | Emergency (ER) | payer MEDICARE, OTHER ==
--- NOTE | 2019-05-23 16:41 | EDM.PDOC ---
ED HPI GENERAL MEDICAL PROBLEM - General Chief Complaint: General Stated Complaint: CONFUSED Time Seen by Provider: 05/23/19 16:59 Source of Information: Reports: Patient, EMS History Limitations: Reports: Altered Mental Status - History of Present Illness INITIAL COMMENTS - FREE TEXT/NARRATIVE: 68 years old female patient brought in by ambulance with chief complaint of confusion over the last couple days. She has not taken her medication for the last 3 days. Complaining of pain in her bottom area. Denies any fever. Denies any headache or visual changes. Denies any fall or injuries. Denies any neck pain or back pain. Denies any chest pain shortness breath. Denies any abdominal pain diarrhea or constipation. Denies any urinary symptom. Denies any focal weakness or numbness anywhere. - Related Data Allergies Allergy/AdvReac Type Severity Reaction Status Date / Time atenolol Allergy Abdominal Verified 05/23/19 16:31 Pain cephalexin Allergy Cannot Verified 05/23/19 16:31 Remember duloxetine HCl Allergy Cannot Verified 05/23/19 16:31 [From Cymbalta] Remember latex Allergy Cannot Verified 05/23/19 16:31 Remember lisinopril Allergy Cannot Verified 05/23/19 16:31 Remember Penicillins Allergy Cannot Verified 05/23/19 16:31 Remember silicone [Silicone] Allergy Cannot Verified 05/23/19 16:31 Remember pregabalin [From Lyrica] AdvReac Stomach Verified 05/23/19 16:31 Upset Home Meds: Home Meds Aspirin [Adult Low Dose Aspirin EC] 81 mg PO DAILY 03/20/14 [History] Budesonide/Formoterol [Symbicort 80-4.5 MCG] 2 puff INH BID PRN 03/20/14 [ History] Furosemide [Lasix] 40 mg PO DAILY 03/20/14 [History] Insulin Aspart [Novolog Flexpen] 12 units SUBCUT TIDMEALS 03/20/14 [History] Omeprazole 40 mg PO DAILY 03/20/14 [History] Oxybutynin Chloride [Ditropan Xl] 10 mg PO DAILY 03/20/14 [History] Simvastatin [Zocor] 20 mg PO BEDTIME 03/20/14 [History] hydrOXYzine pamoate [Vistaril] 25 mg PO TID PRN 03/20/14 [History] traZODone 200 mg PO BEDTIME 03/20/14 [History] Albuterol/Ipratropium [Combivent] 1 puff INH Q4HR PRN 08/27/14 [History] azaTHIOprine [Azathioprine] 50 mg PO TID 08/27/14 [History] buPROPion [Wellbutrin XL] 300 mg PO DAILY 08/27/14 [History] Insulin Degludec [Tresiba Flextouch U-200] 110 units SQ DAILY 08/28/16 [History] Prasugrel HCl [Effient] 10 mg PO DAILY 11/16/16 [History] Albuterol [Proventil Neb Soln] 3 ml NEB Q4H PRN 04/03/17 [History] Carvedilol [Coreg] 6.25 mg PO BID 04/03/17 [History] Methyl Salicylate/Menthol [Icy Hot Stick] 1 applic TOP QID PRN 04/03/17 [History ] Potassium Chloride 20 meq PO DAILY 04/03/17 [History] SUMAtriptan [Imitrex] 50 mg PO ASDIRECTED PRN 04/03/17 [History] Salsalate 500 mg PO BID PRN 04/03/17 [History] metroNIDAZOLE [Metrogel] 1 applic TOP DAILY 04/03/17 [History] Past Medical History HEENT History: Reports: Cataract, Hard of Hearing, Impaired Vision Cardiovascular History: Reports: CAD, High Cholesterol, Hypertension, [place], Stents Respiratory History: Reports: Asthma, COPD, Sleep Apnea Other Respiratory History: c-pap Gastrointestinal History: Reports: Cholelithiasis, GERD Genitourinary History: Reports: Urinary Incontinence 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: , 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 Musculoskeletal History: Reports: Back Pain, Chronic, Fracture, Osteoarthritis Neurological History: Reports: Migraines Psychiatric History: Reports: Depression Endocrine/Metabolic History: Reports: Diabetes, Type II, Obesity/BMI 30+ Dermatologic History: Reports: Other (See Below) Other Dermatologic History: blisters - Infectious Disease History Infectious Disease History: Reports: Chicken Pox, Measles, Mumps - Past Surgical History HEENT Surgical History: Reports: Cataract Surgery Cardiovascular Surgical History: Reports: Coronary Artery Stent GI Surgical History: Reports: Appendectomy, Cholecystectomy Female Surgical History: Reports: Section, D&C, Hysterectomy, Salpingo-Oophorectomy Musculoskeletal Surgical History: Reports: Arthroscopic Procedure, Carpal Tunnel , Other (See Below) Other Musculoskeletal Surgeries/Procedures:: ankle surgery on fx Social & Family History - Family History Family Medical History: Noncontributory - Tobacco Use Smoking Status *Q: Current Every Day Smoker Years of Tobacco use: 50 Packs/Tins Daily: 0.2 - Caffeine Use Caffeine Use: Reports: None Other Caffeine Use: 1 cup/day - Recreational Drug Use Recreational Drug Use: No - Living Situation & Occupation Living situation: Reports: Single Occupation: Disabled ED ROS GENERAL - Review of Systems Review Of Systems: ROS reveals no pertinent complaints other than HPI. ED EXAM, GENERAL - Physical Exam Exam: See Below Exam Limited By: Altered Mental Status General Appearance: Alert, No Apparent Distress Ears: Normal External Exam Nose: Normal Inspection, Normal Mucosa, No Blood Throat/Mouth: Normal Inspection, Normal Lips, Normal Oropharynx Head: Atraumatic, Normocephalic, Facial Swelling Neck: Normal Inspection, Supple, Non-Tender Respiratory/Chest: No Respiratory Distress, Lungs Clear, Normal Breath Sounds, No Accessory Muscle Use, Chest Non-Tender. No: Respiratory Distress, Decreased Breath Sounds, Crackles, Rales, Rhonchi, Wheezing, Stridor, Pleural Rub Cardiovascular: Normal Peripheral Pulses, Regular Rate, Rhythm, No Edema, No Gallop, No JVD, No Murmur GI/Abdominal: Normal Bowel Sounds, Soft, Non-Tender, No Organomegaly, No Distention, No Abnormal Bruit, No Mass Rectal (Female) Exam: Other (Area of erythema and tenderness of her whole groin area and perineum) Extremities: Normal Inspection, Normal Range of Motion, Non-Tender Neurological: Alert, Oriented, CN II-XII Intact, Normal Cognition, Normal Gait, Normal Reflexes, No Motor/Sensory Deficits Psychiatric: Normal Affect, Normal Mood Skin Exam: Warm Lymphatic: No Adenopathy Course - Vital Signs Last Recorded V/S: Last Vital Signs Temp 36.1 C 05/23/19 16:27 Pulse 121 H 05/23/19 17:29 Resp 18 05/23/19 16:27 BP 122/59 L 05/23/19 17:29 Pulse Ox 98 05/23/19 17:29 - Orders/Labs/Meds Orders: Active Orders 24 hr Category Date Time Status CULTURE BLOOD [BC] Stat Lab 05/23/19 16:47 Received Aztreonam [Azactam] 1 gm Med 05/23/19 18:39 Ordered Sodium Chloride 0.9% [Normal Saline] 50 ml IV ONETIME Vancomycin 1 gm Med 05/23/19 18:38 Ordered Sodium Chloride 0.9% [Normal Saline] 250 ml IV ONETIME Medication Orders Vancomycin HCl 1 gm/ Sodium (Chloride) 250 mls @ 150 mls/hr IV ONETIME ONE Stop: 05/23/19 20:17 Aztreonam 1 gm/ Sodium (Chloride) 50 mls @ 100 mls/hr IV ONETIME ONE Stop: 05/23/19 19:08 Labs: Laboratory Tests 05/23/19 05/23/19 05/23/19 Range/Units 16:24 16:47 16:47 WBC 9.2 (4.5-11.0) K/uL RBC 4.98 (3.30-5.50) M/uL Hgb 15.7 H (12.0-15.0) g/dL Hct 45.2 (36.0-48.0) % MCV 91 (80-98) fL MCH 32 H (27-31) pg MCHC 35 (32-36) % Plt Count 333 (150-400) K/uL Neut % (Auto) 71 H (36-66) % Lymph % (Auto) 14 L (24-44) % [place] % (Auto) 10 H (2-6) % Eos % (Auto) 3 (2-4) % Baso % (Auto) 1 (0-1) % Sodium 138 L (140-148) mmol/L Potassium 3.3 L (3.6-5.2) mmol/L Chloride 99 L (100-108) mmol/L Carbon Dioxide 21 (21-32) mmol/L Anion Gap 21.3 H (5.0-14.0) mmol/L BUN 7 (7-18) mg/dL Creatinine 1.1 H (0.6-1.0) mg/dL Est Cr Clr Drug Dosing 45.56 mL/min Estimated GFR (MDRD) 50 L (>60) Glucose 389 H (74-106) mg/dL Lactic Acid (0.4-2.0) mmol/L Calcium 10.0 (8.5-10.1) mg/dL Total Bilirubin 0.5 D (0.2-1.0) mg/dL AST 13 L (15-37) U/L ALT 23 (12-78) U/L Alkaline Phosphatase 205 H (46-116) U/L Lactate Dehydrogenase 187 (82-234) U/L Troponin I < 0.017 (0.000-0.056) ng/mL Total Protein 7.4 (6.4-8.2) g/dL Albumin 2.5 L (3.4-5.0) g/dL Globulin 4.9 H (2.3-3.5) g/dL Albumin/Globulin Ratio 0.5 L (1.2-2.2) Urine Color Yellow Urine Appearance Turbid Urine pH 5.0 (4.5-8.0) Ur Specific [place] 1.020 (1.008-1.030) Urine Protein Trace (NEGATIVE) mg/dL Urine Glucose (UA) >1000 H (NEGATIVE) mg/dL Urine Ketones 150 H (NEGATIVE) mg/dL Urine Occult Blood Large (NEGATIVE) Urine Nitrite Negative (NEGATIVE) Urine Bilirubin Negative (NEGATIVE) Urine Urobilinogen Normal (NORMAL) mg/dL Ur Leukocyte Esterase Moderate (NEGATIVE) Urine RBC 5-10 H (0-5) Urine WBC 5-10 H (0-5) Ur Epithelial Cells Few Amorphous Sediment Not seen Urine Bacteria Moderate Urine Mucus Not seen Urine Other Ketones (NEGATIVE) 05/23/19 05/23/19 Range/Units 16:47 16:47 WBC (4.5-11.0) K/uL RBC (3.30-5.50) M/uL Hgb (12.0-15.0) g/dL Hct (36.0-48.0) % MCV (80-98) fL MCH (27-31) pg MCHC (32-36) % Plt Count (150-400) K/uL Neut % (Auto) (36-66) % Lymph % (Auto) (24-44) % [place] % (Auto) (2-6) % Eos % (Auto) (2-4) % Baso % (Auto) (0-1) % Sodium (140-148) mmol/L Potassium (3.6-5.2) mmol/L Chloride (100-108) mmol/L Carbon Dioxide (21-32) mmol/L Anion Gap (5.0-14.0) mmol/L BUN (7-18) mg/dL Creatinine (0.6-1.0) mg/dL Est Cr Clr Drug Dosing mL/min Estimated GFR (MDRD) (>60) Glucose (74-106) mg/dL Lactic Acid 1.8 (0.4-2.0) mmol/L Calcium (8.5-10.1) mg/dL Total Bilirubin (0.2-1.0) mg/dL AST (15-37) U/L ALT (12-78) U/L Alkaline Phosphatase (46-116) U/L Lactate Dehydrogenase (82-234) U/L Troponin I (0.000-0.056) ng/mL Total Protein (6.4-8.2) g/dL Albumin (3.4-5.0) g/dL Globulin (2.3-3.5) g/dL Albumin/Globulin Ratio (1.2-2.2) Urine Color Urine Appearance Urine pH (4.5-8.0) Ur Specific [place] (1.008-1.030) Urine Protein (NEGATIVE) mg/dL Urine Glucose (UA) (NEGATIVE) mg/dL Urine Ketones (NEGATIVE) mg/dL Urine Occult Blood (NEGATIVE) Urine Nitrite (NEGATIVE) Urine Bilirubin (NEGATIVE) Urine Urobilinogen (NORMAL) mg/dL Ur Leukocyte Esterase (NEGATIVE) Urine RBC (0-5) Urine WBC (0-5) Ur Epithelial Cells Amorphous Sediment Urine Bacteria Urine Mucus Urine Other Ketones Moderate H (NEGATIVE) Meds: Medications Generic Name Dose Route Start Last Admin Trade Name Freq PRN Reason Stop Dose Admin Vancomycin HCl 1 gm/ Sodium 250 mls @ 150 mls/hr 05/23/19 18:38 Chloride IV 05/23/19 20:17 ONETIME ONE Aztreonam 1 gm/ Sodium 50 mls @ 100 mls/hr 05/23/19 18:39 Chloride IV 05/23/19 19:08 ONETIME ONE Discontinued Medications Generic Name Dose Route Start Last Admin Trade Name Freq PRN Reason Stop Dose Admin Acetaminophen 1,000 mg 05/23/19 17:24 05/23/19 17:27 Tylenol Extra Strength PO 05/23/19 17:25 1,000 mg ONETIME ONE Administration Sodium Chloride 1,000 mls @ 999 mls/hr 05/23/19 16:56 05/23/19 16:59 Normal Saline IV 05/23/19 17:56 999 mls/hr .BOLUS STA Administration Insulin Human Lispro 8 unit 05/23/19 18:04 05/23/19 18:38 Humalog SUBCUT 05/23/19 18:05 8 units ONETIME ONE Administration - Radiology Interpretation Free Text/Narrative:: Patient was seen and examined shortly after arrival. Stable. Given 1 L normal saline bolus. Lab and imaging reviewed with the patient.hyperglycemia. Was given a clinic of subcutaneous NovoLog. Elevated anion gap, positive serum ketone. However her CO2 unremarkable. I don't think this is a DKA. Patient was given 1 L of fluid. Also started on vancomycin and aztreonam for perineal cellulitis. Unfortunately we do not have any available.I did consulted was Dr. Palomo hospitalist outside contractor sales at the [facility] and he accepted the transfer for further management. Patient agrees with the plan. Stable for transfer. Departure - Departure Time of Disposition: 18:43 Disposition: DC/Tfer to Acute Hospital 02 Condition: Fair Clinical Impression: Confusion, Hyperglycemia Cellulitis Qualifiers: Site of cellulitis of trunk: perineum - Discharge Information Referrals: Danilo Alexander MD [Primary Care Provider] - Forms: ED Department Discharge - My Orders Last 24 Hours: My Active Orders 05/23/19 16:47 CULTURE BLOOD [BC] Stat 05/23/19 18:38 Vancomycin 1 gm Sodium Chloride 0.9% [Normal Saline] 250 ml IV ONETIME 05/23/19 18:39 Aztreonam [Azactam] 1 gm Sodium Chloride 0.9% [Normal Saline] 50 ml IV ONETIME - Assessment/Plan Last 24 Hours: My Active Orders 05/23/19 16:47 CULTURE BLOOD [BC] Stat 05/23/19 18:38 Vancomycin 1 gm Sodium Chloride 0.9% [Normal Saline] 250 ml IV ONETIME 05/23/19 18:39 Aztreonam [Azactam] 1 gm Sodium Chloride 0.9% [Normal Saline] 50 ml IV ONETIME Plan: she will be transferred to [facility].
[2019-05-23] MEDS ORDERED: Sodium Chloride 0.9% 1,000 ML IV STA (16:56)
[2019-05-23] MEDS ORDERED: Acetaminophen 500 MG Tab PO ONE (17:24)
[2019-05-23] MEDS ORDERED: Insulin Lispro 100 Units/ML 3 ML Vial SUBCUT ONE (18:04)
[2019-05-23 18:54] VITALS: BP 120/69; PULSE 61
== END 2019-05-23 20:58 ==
LOC: JP.ED 16:00
DX: L03.315 Cellulitis of perineum (principal); E11.65 Type 2 diabetes mellitus with hyperglycemia; R41.0 Disorientation, unspecified; I10 Essential (primary) hypertension; I25.10 Atherosclerotic heart disease of native coronary artery without angina pectoris; I25.2 Old myocardial infarction; J44.9 Chronic obstructive pulmonary disease, unspecified; K21.9 Gastro-esophageal reflux disease without esophagitis; M19.90 Unspecified osteoarthritis, unspecified site; E66.9 Obesity, unspecified; F32.9 Major depressive disorder, single episode, unspecified; F17.210 Nicotine dependence, cigarettes, uncomplicated; Z98.49 Cataract extraction status, unspecified eye; Z95.5 Presence of coronary angioplasty implant and graft; Z90.49 Acquired absence of other specified parts of digestive tract; Z90.710 Acquired absence of both cervix and uterus; Z79.4 Long term (current) use of insulin; Z79.82 Long term (current) use of aspirin; Z79.899 Other long term (current) drug therapy; Z88.8 Allergy status to other drugs, medicaments and biological substances; Z88.1 Allergy status to other antibiotic agents; Z88.0 Allergy status to penicillin; Z91.040 Latex allergy status
CPT/HCPCS: 36415; 80053; 81001; 82009; 83605; 83615; 84484; 85025; 87040; 96361; 96365; 96367; 99285; A9270; J1815; J3370; J3490; J7030; J7050; 99284

== ENCOUNTER 2022-06-29 17:03 | Emergency (ER) | payer MEDICARE, MEDICAID ==
[2022-06-29 18:47] LABS: ESTIMATED GFR 49 mL/min (>60)
[2022-06-29 19:25] VITALS: BP 147/56
[2022-06-29] MEDS ORDERED: Ciprofloxacin 500 MG Tab PO ONE (19:47)
[2022-06-29 20:05] VITALS: PULSE 94
== END 2022-06-29 21:07 ==
LOC: JP.ED 17:03
DX: N39.0 Urinary tract infection, site not specified (principal); J44.9 Chronic obstructive pulmonary disease, unspecified; E11.65 Type 2 diabetes mellitus with hyperglycemia; R41.83 Borderline intellectual functioning; E66.01 Morbid (severe) obesity due to excess calories; I25.10 Atherosclerotic heart disease of native coronary artery without angina pectoris; E78.00 Pure hypercholesterolemia, unspecified; I10 Essential (primary) hypertension; I25.2 Old myocardial infarction; Z95.5 Presence of coronary angioplasty implant and graft; Z20.822 Contact with and (suspected) exposure to COVID-19; Z88.1 Allergy status to other antibiotic agents; Z91.040 Latex allergy status; Z88.8 Allergy status to other drugs, medicaments and biological substances; Z88.0 Allergy status to penicillin; Z91.013 Allergy to seafood; Z79.82 Long term (current) use of aspirin; Z79.4 Long term (current) use of insulin; Z79.899 Other long term (current) drug therapy; Z68.43 Body mass index [BMI] 50.0-59.9, adult
CPT/HCPCS: 36415; 71045; 80053; 81001; 85025; 86140; 87086; 99285; A9270; U0002

== ENCOUNTER 2022-08-23 13:00 | Observation (INO) | payer MEDICARE, MEDICAID ==
[2022-08-23] MEDS ORDERED: traZODone 50 MG Tab ONE (16:00)
[2022-08-23] MEDS ORDERED: Lactated Ringers 1,000 ML IV ONE (16:00)
[2022-08-23] MEDS ORDERED: Carvedilol 3.125 MG Tab ONE (16:00)
[2022-08-23] MEDS ORDERED: Latanoprost 0.005% Ophth Soln 2.5 ML Bottle ONE (16:00)
[2022-08-23] MEDS ORDERED: atorvaSTATin 20 MG Tab ONE (16:00)
[2022-08-23] MEDS ORDERED: amLODIPine 5 MG Tab ONE (16:00)
[2022-08-23] MEDS ORDERED: Loratadine 10 MG Tab ONE (16:00)
[2022-08-23] MEDS ORDERED: Gabapentin 100 MG Cap ONE (16:00)
[2022-08-23] MEDS ORDERED: cefTRIAXone 1 GM in Sodium Chloride 0.9% 50 ML IV ONE (17:00)
[2022-08-23] MEDS ORDERED: Sodium Chloride 0.9% 1,000 ML IV ONE (17:21)
[2022-08-24] MEDS ORDERED: Liraglutide (rDNA Origin) 0.6 MG/0.1 ML 3 ML Pen ONE (00:30)
[2022-08-24] MEDS ORDERED: Carvedilol 12.5 MG Tab ONE ×2 (00:30)
[2022-08-24] MEDS ORDERED: Insulin Glargine,Human Rec. Analog 100 Units/ML 3 ML Pen ONE (00:30)
[2022-08-24] MEDS ORDERED: buPROPion 150 MG Tab.ER ONE (00:30)
[2022-08-24] MEDS ORDERED: Gabapentin 100 MG Cap ONE ×3 (00:30)
[2022-08-24] MEDS ORDERED: Insulin Lispro 100 Unit/ML 3 ML KwikPen SUBCUT ONE (00:30)
[2022-08-24] MEDS ORDERED: Potassium Chloride 10 MEQ Cap.ER ONE (00:30)
[2022-08-24] MEDS ORDERED: traZODone 50 MG Tab ONE (00:30)
[2022-08-24] MEDS ORDERED: Loratadine 10 MG Tab ONE (00:30)
[2022-08-24] MEDS ORDERED: Polyethylene Glycol 3350 Powder 17 GM Packet ONE (00:30)
[2022-08-24] MEDS ORDERED: amLODIPine 5 MG Tab ONE ×2 (09:00)
[2022-08-24] MEDS ORDERED: Fluticasone NASAL Spray 16 GM Bottle ONE (09:00)
[2022-08-24] MEDS ORDERED: atorvaSTATin 20 MG Tab ONE (09:00)
[2022-08-24] MEDS ORDERED: cefTRIAXone 1 GM in Sodium Chloride 0.9% 50 ML IV ONE (16:00)
[2022-08-25] MEDS ORDERED: buPROPion 150 MG Tab.ER ONE (07:00)
[2022-08-25] MEDS ORDERED: Carvedilol 12.5 MG Tab ONE (07:00)
[2022-08-25] MEDS ORDERED: Potassium Chloride 10 MEQ Cap.ER ONE (07:00)
[2022-08-25] MEDS ORDERED: Gabapentin 100 MG Cap ONE (07:00)
[2022-08-25] MEDS ORDERED: Polyethylene Glycol 3350 Powder 17 GM Packet ONE (07:00)
[2022-08-25] MEDS ORDERED: amLODIPine 5 MG Tab ONE (07:00)
[2022-09-19 00:33] LABS: ESTIMATED GFR 32 mL/min (>60)
[2022-09-19 00:34] LABS: TROPONIN I HIGH SENSITIVITY 6.1 pg/mL (<=60.3)
[2022-09-19 13:26] LABS: ESTIMATED GFR 48 mL/min (>60)
== END 2022-08-25 10:28 ==
LOC: JP.ED 13:00 → JP.ZCENSUS 17:20
PROVIDERS: ADMIT Internal Medicine; ATTEND Internal Medicine
DX: N30.00 Acute cystitis without hematuria (principal); E66.01 Morbid (severe) obesity due to excess calories; E11.319 Type 2 diabetes mellitus with unspecified diabetic retinopathy without macular edema; R53.1 Weakness; F32.A Depression, unspecified; G47.33 Obstructive sleep apnea (adult) (pediatric); I10 Essential (primary) hypertension; Z79.82 Long term (current) use of aspirin; Z87.891 Personal history of nicotine dependence; Z99.81 Dependence on supplemental oxygen; Z20.822 Contact with and (suspected) exposure to COVID-19
CPT/HCPCS: 36415; 80048; 80053; 81001; 82947; 83605; 83690; 84145; 84484; 85025; 85027; 86140; 87040; 87086; 96361; 96365; 99283; A9270; J0696; J1815; J3490; J7030; J7120; U0002

== ENCOUNTER 2024-09-03 06:16 | Inpatient (IN) | payer MEDICARE, MEDICAID ==
[2024-09-03 06:45] LABS: BASOPHILS ABSOLUTE AUTO 0.04 K/uL (0.00-0.10); BASOPHILS PERCENT AUTO 0.3 % (0.1-1.3); EOSINOPHILS ABSOLUTE AUTO 0.04 K/uL (0.00-0.40); EOSINOPHILS PERCENT AUTO 0.3 % (0.0-5.4); HEMATOCRIT 41.7 % (34.3-46.0); HEMOGLOBIN 13.5 g/dL (11.2-15.5); IMMATURE GRAN ABSOLUTE AUTO 0.06 K/uL (0.00-0.23); IMMATURE GRAN PERCENT AUTO 0.4 % (0.0-0.7); LYMPHOCYTES ABSOLUTE AUTO 0.31 K/uL (0.8-3.3); LYMPHOCYTES PERCENT AUTO 2.3 % (11.4-47.7); MEAN CORPUSCULAR HEMOGLOBIN 31.1 pg (31.6-35.5); MEAN CORPUSCULAR HGB CONC 32.4 g/dL (31.6-35.5); MEAN CORPUSCULAR VOLUME 96.1 fL (81.4-99.0); MONOCYTES ABSOLUTE AUTO 0.68 K/uL (0.20-0.90); NEUTROPHILS ABSOLUTE AUTO 12.41 K/uL (1.0-7.6); NEUTROPHILS PERCENT AUTO 91.7 % (40.0-78.1); PLATELET COUNT,PLT 190 K/uL (130-375); RED BLOOD CELL COUNT 4.34 M/uL (3.77-5.24); WHITE BLOOD CELL COUNT,WBC 13.5 K/uL (3.2-11.0)
[2024-09-03 06:47] LABS: APPEARANCE,URINE CLOUDY (CLEAR); BILIRUBIN,URINE NEGATIVE (NEGATIVE); COLOR,URINE YELLOW (YELLOW); GLUCOSE,URINE NEGATIVE (NEGATIVE); KETONES,URINE TRACE mg/dL (NEGATIVE); LEUKOCYTE ESTERASE,URINE TRACE (NEGATIVE); NITRITE,URINE NEGATIVE (NEGATIVE); OCCULT BLOOD,URINE TRACE-INTACT (NEGATIVE); PROTEIN,URINE TRACE mg/dL (NEGATIVE)
[2024-09-03 06:54] LABS: AMORPHOUS SEDIMENT,URINE NOT SEEN; BACTERIA,URINE MANY; EPITHELIAL CELLS,URINE FEW; MUCUS,URINE FEW; RBC,URINE 0-5 (0-5)
[2024-09-03] MEDS: Acetaminophen 1,000 MG in Premix Bag 1 BAG IV ONE (07:00)
[2024-09-03 07:04] LABS: ANION GAP 7.3 mmol/L (5.0-14.0); BLOOD UREA NITROGEN,BUN 21 mg/dL (7-18); C-REACTIVE PROTEIN 2.49 mg/dL (<0.50); CALCIUM 9.4 mg/dL (8.5-10.1); CARBON DIOXIDE,CO2 32 mmol/L (21-32); CHLORIDE,CL 103 mmol/L (100-108); CREATININE 1.3 mg/dL (0.6-1.0); ESTIMATED GFR 43 mL/min (>60); GLUCOSE RANDOM 197 mg/dL (74-106); POTASSIUM,K 4.5 mmol/L (3.6-5.2); SODIUM,NA 142 mmol/L (140-148)
[2024-09-03 07:10] LABS: LACTIC ACID 1.3 mmol/L (0.4-2.0)
[2024-09-03] MEDS: Sodium Chloride 0.9% 1,000 ML IV SCH (07:18)
[2024-09-03 07:21] LABS: BASE EXCESS VENOUS 5.3 mm/L; BICARBONATE,VENOUS 31.2 mmol/L; CARBOXYHEMOGLOBIN 2.2 % (0.0-1.6); METHEMOGLOBIN 0.8 %; OXYHEMOGLOBIN 62.1 %; PCO2 VENOUS 53.1 mm/Hg; PH,VENOUS 7.386 (7.350-7.450); TOTAL HEMOGLOBIN 13.4 g/dL (12.0-16.0)
[2024-09-03 07:28] LABS: PO2 VENOUS 35.9 mm/Hg
[2024-09-03] MEDS: cefTRIAXone 2 GM in Sodium Chloride 0.9% 50 ML IV ONE (08:08)
[2024-09-03 08:10] LABS: CORONAVIRUS COVID-19 NAA NEGATIVE (NEGATIVE); INFLUENZA A NAA NEGATIVE (NEGATIVE); INFLUENZA B NAA NEGATIVE (NEGATIVE); RESPIRATORY SYNCYTIAL VIR NAA NEGATIVE (NEGATIVE)
[2024-09-03] MEDS ORDERED: Sodium Chloride 0.9% 10 ML Syringe FLUSH PRN (08:40)
[2024-09-03] MEDS ORDERED: Sodium Chloride 0.9% 100 ML IV SCH (08:45)
[2024-09-03] MEDS ORDERED: Iopamidol 755 Mg/ML 100 ML Bottle IV SCH (08:45)
[2024-09-03] MEDS: Albuterol/Ipratropium 3.0-0.5 MG/3 ML Neb Soln NEB ONE (10:11)
[2024-09-03] MEDS ORDERED: Ondansetron 4 MG/2 ML SDV IV PRN (13:01)
[2024-09-03] MEDS ORDERED: Sennosides/Docusate Sodium 50-8.6 MG Tab PO PRN (13:01)
[2024-09-03] MEDS ORDERED: Ondansetron 4 MG Tab.DIS PO PRN (13:01)
[2024-09-03] MEDS ORDERED: Magnesium Hydroxide 400 MG/5 ML Susp 30 ML Cup PO PRN (13:01)
[2024-09-03] MEDS ORDERED: Albuterol 0.083% 2.5 MG/3 ML Neb Soln NEB PRN (13:01)
[2024-09-03] MEDS: Albuterol/Ipratropium 3.0-0.5 MG/3 ML Neb Soln NEB SCH (14:40)
[2024-09-03] MEDS: Insulin Lispro 100 Unit/ML 3 ML KwikPen SUBCUT SCH ×2 (15:18→16:45)
[2024-09-03] MEDS: Acetaminophen 325 MG Tab PO SCH (15:20)
[2024-09-03] MEDS: Gabapentin 100 MG Cap PO SCH (15:20)
[2024-09-03] MEDS: traZODone 50 MG Tab PO SCH (20:59)
[2024-09-03] MEDS: Melatonin 3 MG Tab PO SCH (20:59)
[2024-09-03] MEDS: Carvedilol 12.5 MG Tab PO SCH (21:00)
[2024-09-03] MEDS: Lactobacillus Rhamnosus GG (Probiotic) Cap PO SCH (21:00)
[2024-09-03] MEDS: atorvaSTATin 20 MG Tab PO SCH (21:00)
[2024-09-03] MEDS: Divalproex Sodium Delayed-Release 250 MG Tab.CR PO SCH (21:00)
[2024-09-03] MEDS: Latanoprost 0.005% Ophth Soln 2.5 ML Bottle EYEBOTH SCH (21:02)
[2024-09-03] MEDS: amLODIPine 5 MG Tab PO SCH (21:02)
[2024-09-03] MEDS: Insulin Glargine,Human Rec. Analog 100 Units/ML 3 ML Pen SUBCUT SCH (21:41)
[2024-09-04] MEDS: cefTRIAXone 2 GM in Sodium Chloride 0.9% 50 ML IV SCH (08:58)
[2024-09-04] MEDS: Furosemide 40 MG Tab PO SCH (09:02)
[2024-09-04] MEDS: Aspirin 81 MG Tab.EC PO SCH (09:02)
[2024-09-04] MEDS: Famotidine 20 MG Tab PO SCH (09:02)
[2024-09-04] MEDS: Sennosides/Docusate Sodium 50-8.6 MG Tab PO SCH (09:02)
[2024-09-04] MEDS: buPROPion 150 MG Tab.ER PO SCH (09:03)
[2024-09-04] MEDS: Polyethylene Glycol 3350 Powder 17 GM Packet PO SCH (09:06)
[2024-09-05] MEDS: Acetaminophen 325 MG Tab PO PRN (01:18)
[2024-09-05 09:26] VITALS: BP 129/64; PULSE 80
[2024-09-05] MEDS: Cefdinir 300 MG Cap PO ONE (10:45)
== END 2024-09-05 11:25 | disposition home or self-care (01) | DRG 690 ==
LOC: JP.ED 06:16 → JP.MS 11:40
PROVIDERS: ADMIT Internal Medicine; ATTEND Internal Medicine
DX: N30.00 Acute cystitis without hematuria (principal); E66.2 Morbid (severe) obesity with alveolar hypoventilation; F03.93 Unspecified dementia, unspecified severity, with mood disturbance; Z68.43 Body mass index [BMI] 50.0-59.9, adult; F03.911 Unspecified dementia, unspecified severity, with agitation; F05 Delirium due to known physiological condition; R41.82 Altered mental status, unspecified; Z66 Do not resuscitate; G89.29 Other chronic pain; M54.9 Dorsalgia, unspecified; H54.7 Unspecified visual loss; H91.90 Unspecified hearing loss, unspecified ear; M19.90 Unspecified osteoarthritis, unspecified site; G43.909 Migraine, unspecified, not intractable, without status migrainosus; N39.0 Urinary tract infection, site not specified; R09.02 Hypoxemia; I87.2 Venous insufficiency (chronic) (peripheral); I25.10 Atherosclerotic heart disease of native coronary artery without angina pectoris; E78.00 Pure hypercholesterolemia, unspecified; E11.620 Type 2 diabetes mellitus with diabetic dermatitis; I10 Essential (primary) hypertension; I25.2 Old myocardial infarction; J44.9 Chronic obstructive pulmonary disease, unspecified; E11.9 Type 2 diabetes mellitus without complications; E66.9 Obesity, unspecified; K21.9 Gastro-esophageal reflux disease without esophagitis; Z95.5 Presence of coronary angioplasty implant and graft; Z79.82 Long term (current) use of aspirin; Z90.49 Acquired absence of other specified parts of digestive tract; Z90.89 Acquired absence of other organs; Z98.890 Other specified postprocedural states; Z90.710 Acquired absence of both cervix and uterus; Z79.899 Other long term (current) drug therapy; Z88.0 Allergy status to penicillin; Z88.1 Allergy status to other antibiotic agents; Z88.8 Allergy status to other drugs, medicaments and biological substances; Z91.040 Latex allergy status; Z79.4 Long term (current) use of insulin
CPT/HCPCS: 0241U; 36415; 71045; 71275; 80048; 81001; 82803; 82947; 83605; 85025; 86140; 87040; 87086; 94640; 96361; 96365; 96375; 99223; 99232; 99238; 99285; A9270-GY; J0131; J0696; J1815; J1815-GY; J3490; J7030; J7620